=== PATIENT | female | born 1980 | race Hispanic/Latino ===

== ENCOUNTER 2024-04-28 09:11 | Inpatient (IN) | payer MEDICAID ==
--- OUTSIDE RECORDS SUMMARY | 2024-04-28 09:14 | XMS REPORT | Continuity of Care Document ---
Author Name Unknown Address [address] [place] [address] [facility] Address [address] [place] [address] Care Team Providers Care [facility] Supervisor Name Role Phone Ximena Wright Primary Care Physician Allergies, Adverse Reactions, Alerts Allergy Name Allergy Type Status Severity Reaction(s) Onset Date Inactive Date Treating Clinician Comments Source Penicill ins Propensi ty to adverse reaction to drug Active 04-18 00:00: 00 Osmin Simons Phenerga n Propensi ty to adverse reaction to drug Active 2014-02 00:00: 00 Osmin Simons Medications Ordered Medication Name Filled Medication Name Start Date Stop Date Current Medication? Ordering Clinician Indication Dosage Frequency Signature (SIG) Comments Components Source Rodríguez Cruz U-100 Insulin 100 unit/mL (3 mL) subcutaneou s 04-23 00:00: 00 Yes (3 mL) Osmin Simons losartan 25 mg tablet 04-23 00:00: 00 Yes 1mg Osmin Simons ferrous fumarate 324 mg (106 mg iron) tablet 08-08 00:00: 00 Yes 1mg/4 gram Osmin Simons hydrochloro thiazide 12.5 mg tablet 08-02 00:00: 00 Yes 1mg Osmin Simons lisinopril 40 mg tablet 07-05 00:00: 00 Yes 1mg Osmin Simons metformin 500 mg tablet 07-05 00:00: 00 Yes 1mg Osmin Simons diclofenac potassium 50 mg tablet 07-05 00:00: 00 Yes 1mg Osmin Simons levothyroxi ne 50 mcg tablet 07-05 00:00: 00 Yes 1mcg Osmin Simons ibuprofen 800 mg tablet 04-13 00:00: 00 Yes 1mg Osmin Simons Bromfed DM 2 mg-30 mg-10 mg/5 mL syrup 04-13 00:00: 00 Yes 10mg/5 mL Osmin Simons lithium carbonate 300 mg tablet 2014-02 00:00: 00 Yes 3mg Osmin Simons lisinopril 40 mg tablet 2014-02 00:00: 00 Yes 1mg Osmin Simons benztropine 1 mg tablet 2014-02 00:00: 00 Yes 1mg Osmin Simons metformin 500 mg tablet 2014-02 00:00: 00 Yes 1mg Osmin Simons risperidone 2 mg tablet 2014-02 00:00: 00 Yes 1mg Osmin Simons levothyroxi ne 50 mcg tablet 2014-02 00:00: 00 Yes 1mcg Osmin Simons Vital Signs Vital Name Observation Time Observation Value Comments S ource Height Measured 2024-04-27 11:01:00 62.50 inches Osmin Simons Body Temperature 2024-04-27 11:01:00 97.60 degrees Osmin Simons Heart Rate 2024-04-27 11:01:00 92.00 /min Linda en F Ronak Respiratory Rate 2024-04-27 11:01:00 18.00 /min Osmin Simons BP Systolic 2024-04-27 11:01:00 188 mm[Hg] Step hen F Ronak BP Diastolic 2024-04-27 11:01:00 97 mm[Hg] Ender phen F Ronak Weight Measured 2024-04-27 11:01:00 292.40 pounds Osmin Simons BP Systolic 2024-04-23 10:08:00 176 mm[Hg] Step hen F Ronak BP Diastolic 2024-04-23 10:08:00 100 mm[Hg] Ender phen F Ronak Weight Measured 2024-04-23 10:08:00 265.00 pounds Osmin Simons Height Measured 2024-04-23 10:08:00 62.50 inches Osmin Simons Body Temperature 2024-04-23 10:08:00 98.10 degrees Osmin Simons Heart Rate 2024-04-23 10:08:00 101.00 /min Step hen F Ronak Respiratory Rate 2024-04-23 10:08:00 18.00 /min Osmin F Ronak BP Systolic 2015-08-02 11:02:00 135 mm[Hg] Step hen F Ronak BP Diastolic 2015-08-02 11:02:00 89 mm[Hg] Ender phen F Ronak Weight Measured 2015-08-02 11:02:00 265.80 pounds Osmin F Ronak Height Measured 2015-08-02 11:02:00 62.50 inches Osmin F Ronak Body Temperature 2015-08-02 11:02:00 98.10 degrees Osmin F Ronak Heart Rate 2015-08-02 11:02:00 86.00 /min Linda en F Ronak Respiratory Rate 2015-08-02 11:02:00 15.00 /min Osmin F Ronak BP Systolic 2015-07-14 16:52:00 118 mm[Hg] Step hen F Ronak BP Diastolic 2015-07-14 16:52:00 77 mm[Hg] Ender phen F Ronak Weight Measured 2015-07-14 16:52:00 259.00 pounds Osmin F Ronak Height Measured 2015-07-14 16:52:00 Osmin F Ronak Body Temperature 2015-07-14 16:52:00 98.00 degrees Osmin F Ronak Heart Rate 2015-07-14 16:52:00 104.00 /min Step hen F Ronak Respiratory Rate 2015-07-14 16:52:00 18.00 /min Osmin F Ronak BP Systolic 2015-07-06 17:14:00 130 mm[Hg] Step hen F Roank BP Diastolic 2015-07-06 17:14:00 82 mm[Hg] Ender phen F Ronak Weight Measured 2015-07-06 17:14:00 264.40 pounds Osmin F Ronak Height Measured 2015-07-06 17:14:00 62.50 inches Osmin F Ronak Body Temperature 2015-07-06 17:14:00 97.70 degrees Osmin F Ronak Heart Rate 2015-07-06 17:14:00 95.00 /min Linda en F Ronak Respiratory Rate 2015-07-06 17:14:00 15.00 /min Osmin F Ronak BP Systolic 2015-07-06 17:03:00 130 mm[Hg] Step hen F Ronak BP Diastolic 2015-07-06 17:03:00 82 mm[Hg] Ender phen F Ronak Weight Measured 2015-07-06 17:03:00 264.40 pounds Osmin F Ronak Height Measured 2015-07-06 17:03:00 62.50 inches Osmin F Ronak Body Temperature 2015-07-06 17:03:00 97.70 degrees Osmin F Ronak Heart Rate 2015-07-06 17:03:00 95.00 /min Linda en F Ronak Respiratory Rate 2015-07-06 17:03:00 15.00 /min Osmin F Ronak BP Systolic 2015-04-14 13:48:00 166 mm[Hg] Step hen F Ronak BP Diastolic 2015-04-14 13:48:00 100 mm[Hg] Ender phen F Ronak Weight Measured 2015-04-14 13:48:00 253.80 pounds Osmin F Ronak Height Measured 2015-04-14 13:48:00 62.50 inches Osmin F Ronak Body Temperature 2015-04-14 13:48:00 98.10 degrees Osmin F Ronak Heart Rate 2015-04-14 13:48:00 96.00 /min Linda en F Ronak Respiratory Rate 2015-04-14 13:48:00 21.00 /min Osmin F Ronak BP Systolic 2015-04-14 13:42:00 166 mm[Hg] Step hen F Ronak BP Diastolic 2015-04-14 13:42:00 100 mm[Hg] Ender phen F Ronak Weight Measured 2015-04-14 13:42:00 253.80 pounds Osmin F Ronak Height Measured 2015-04-14 13:42:00 62.50 inches Osmin F Ronak Body Temperature 2015-04-14 13:42:00 98.10 degrees Osmin F Ronak Heart Rate 2015-04-14 13:42:00 96.00 /min Linda en F Ronak Respiratory Rate 2015-04-14 13:42:00 21.00 /min Osmin F Ronak BP Systolic 2014-12-08 13:40:00 150 mm[Hg] Step hen F Ronak BP Diastolic 2014-12-08 13:40:00 90 mm[Hg] Ender phen F Ronak Weight Measured 2014-12-08 13:40:00 273.00 pounds Osmin F Ronak Height Measured 2014-12-08 13:40:00 62.50 inches Osmin F Ronak Body Temperature 2014-12-08 13:40:00 97.50 degrees Osmin Simons Heart Rate 2014-12-08 13:40:00 85.00 /min Linda en F Ronak Respiratory Rate 2014-12-08 13:40:00 20.00 /min Osmin Simons BP Diastolic 2014-12-08 13:36:00 90 mm[Hg] Ender Simons Weight Measured 2014-12-08 13:36:00 273.00 pounds Osmin Simons Height Measured 2014-12-08 13:36:00 62.50 inches Osmin Simons Body Temperature 2014-12-08 13:36:00 97.50 degrees Osmin Simons Heart Rate 2014-12-08 13:36:00 85.00 /min Linda en F Ronak Respiratory Rate 2014-12-08 13:36:00 20.00 /min Osmin Simons BP Systolic 2014-12-08 13:36:00 150 mm[Hg] Rayo Simons Encounters Start Date/Time End Date/Time Encounter Type Admission Type Attending [facility] Care Department Encounter ID Source 2024-04-27 10:44:34 2024-04-27 10:44:34 Outpatient [facility] [id number] Osmin Simons 2024-04-23 10:06:36 2024-04-23 10:06:36 Outpatient [facility] [id number] Osmin Simons 2024-04-23 00:00:00 2024-04-23 00:00:00 Outpatient Visit [facility] [id number] Osmin Simons Results Test Description Test Time Test Comments Results Result Co mments Source Osmin SimonsHEMOGLOBIN [id number] 00:00:00* Test Item Value Reference Range Interpretation Comme robby HEMOGLOBIN A1c (test code = 4548-4) 9.8 %oftotalHgb Osmin SimonsVITAMIN B 12 AND FOLIC [id number] 00:00:00* Test Item Value Reference Range Interpretation Comme nts VITAMIN B-12 (test code = 2840) 330 PG/ML FOLIC ACID (test code = 2695) 9.6 NG/ML Osmin [id number] 00:00:00* Test Item Value Reference Range Interpretation Comme nts FERRITIN (test code = 5) 10 NG/ML Osmin SimonsIRON BINDING CAPACITY AND IRON AND % [id number] 00:00:00* Test Item Value Reference Range Interpretation Comme nts IRON, SERUM (test code = 2) 23 UG/DL UNSATURATED IBC (test code = 37123) 404 UG/DL CALC TOTAL IBC (test code = 7) 427 UG/DL CALC % IRON SAT (test code = 2078) 5 % Osmin SimonsRETICULOCYTE [id number] 00:00:00* Test Item Value Reference Range Interpretation Comme nts RETICULOCYTE COUNT (test code = 1018) 1.4 % Osmin SimonsLIPID [id number] 00:00:00* Test Item Value Reference Range Interpretation Comme nts CHOLESTEROL (test code = 2210) 190 MG/DL TRIGLYCERIDES (test code = 2232) 168 MG/DL HDL CHOLESTEROL (test code = 2220) 37 MG/DL CALCULATED LDL CHOL (test co de = 2237) 119 MG/DL RISK RATIO LDL/HDL (test cod e = 2238) 3.23 RATIO Osmin SimonsHEMOGLOBIN [id number] 00:00:00* Test Item Value Reference Range Interpretation Comme nts HEMOGLOBIN A1c (test code = 52385) 6.4 % Osmin SimonsCBC W/AUTO [id number] 00:00:00* Test Item Value Reference Range Interpretation Comme nts WBC (test code = 1001) 8.1 K/UL RBC (test code = 1002) 3.77 M/UL HEMOGLOBIN (test code = 1003) 8.5 G/DL HEMATOCRIT (test code = 1004) 27.4 % MCV (test code = 1005) 72.7 fL MCH (test code = 1006) 22.5 PG MCHC (test code = 1007) 31.0 G/DL RDW (test code = 1038) 15.4 % NEUTROPHILS (test code = 1008) 62 % LYMPHOCYTES (test code = 1010) 27 % MONOCYTES (test code = 1011) 8 % EOSINOPHILS (test code = 1012) 3 % PLATELET COUNT (test code = 1015) 411 K/UL Osmin SimonsTHYROID II PROFILE (T3U, T4, T7, TSH)2015-07-08 00:00:00* Test Item Value Reference Range Interpretation Comme nts T3 UPTAKE (test code = 2817) 29.5 % T4 (THYROXINE) (test code = 2819) 6.2 UG/DL CALCULATED T7 (FTI) (test co de = 2820) 1.83 TSH (test code = 2821) 2.7 UIU/ML Osmin SimonsCOMPREHENSIVE METABOLIC [id number] 00:00:00* Test Item Value Reference Range Interpretation Comme nts GLUCOSE (test code = 2217) 99 MG/DL BUN (test code = 2208) 9 MG/DL CREATININE (test code = 2214) 0.50 MG/DL eGFR AMER. (test cod e = 26940) 146 ML/MIN/1.73 eGFR NON- AMER. (test code = 79368) 126 ML/MIN/1.73 CALCULATED BUN/CREAT (test code = 2235) 18 RATIO SODIUM (test code = 2231) 135 MEQ/L POTASSIUM (test code = 2228) 4.1 MEQ/L CHLORIDE (test code = 2215) 102 MEQ/L CARBON DIOXIDE (test code = 2206) 23 MEQ/L CALCIUM (test code = 2209) 8.9 MG/DL PROTEIN, TOTAL (test code = 2229) 7.0 G/DL ALBUMIN (test code = 2201) 3.7 G/DL CALCULATED GLOBULIN (test code = 2240) 3.3 G/DL CALCULATED A/G RATIO (test code = 2234) 1.1 RATIO BILIRUBIN, TOTAL (test code = 2207) 0.6 MG/DL ALKALINE PHOSPHATASE (test code = 2204) 73 U/L SGOT (AST) (test code = 2218) 10 U/L SGPT (ALT) (test code = 2219) 10 U/L Osmin Simons Notes Date/Time Note Provider Source Osmin Simons [facility]
--- NOTE | 2024-04-28 09:35 | RAD REPORT ---
Procedure: Chest Single View HISTORY: Chest pain COMPARISON: 2016 FINDINGS: The rachel are hazy. No significant pleural effusion noted. The heart is mildly to moderately enlarged. IMPRESSION: These findings may indicate mild CHF
[2024-04-28] MEDS ORDERED: LABETALOL 20 MG/4ML SYRINGE IV ONE (09:39)
[2024-04-28 09:48] LABS: Absolute Eosinophils 0.1 K/uL (0-0.5); Absolute Lymphocytes (CBC) 1.3 K/uL (0.7-4.9); Absolute Monocytes 0.6 K/uL (0.1-1.3); Absolute Neutrophil 5.7 K/uL (1.8-8.0); Basophils % 0.4 % (0-1.3); Eosinophils % 1.4 % (0-4.4); Hematocrit 32.4 % (36.0-45.0); Hemoglobin 10.4 g/dL (12.0-15.0); Lymphocytes % 17.1 % (15.3-44.8); MCH 23.9 pg (27.0-35.0); MCHC 32.2 g/dL (32.0-36.0); MCV 74.3 fL (80-100); MPV 8.4 fL (7.6-11.3); Monocytes % 8.1 % (3.3-12.3); Nucleated Red Blood Cells % 0.2 % (0-0); PT Prothrombin Time 12.1 SECONDS (10-13.0); Platelets 321 thou/uL (152-406); Protime INR 1.06; RBC Red Blood Cell Count 4.35 M/uL (3.86-4.86); Red Cell Distribution Width 16.6 % (12.1-15.2)
[2024-04-28 10:04] LABS: Albumin 3.3 g/dL (3.4-5.0); Albumin/Globulin Ratio 0.9 (1.1-1.8); Anion Gap 10.8 mEq/L (5.0-15.0); Bilirubin Direct 0.2 mg/dL (0-0.2); Bilirubin Indirect, Calculated 0.6 mg/dL (0.2-0.8); Bilirubin Total 0.8 mg/dL (0.2-1.0); Globulin 3.8 g/dL (2.3-3.5); Magnesium 1.8 mg/dL (1.6-2.4); Potassium 3.8 mEq/L (3.5-5.1); Protein, Total 7.1 g/dL (6.4-8.2); Troponin High Sensitivity 22.7 pg/mL (<58.9)
--- NOTE | 2024-04-28 10:50 | EDPHYS ---
Physician Documentation [facility] Name: Sally Mclaughlin Age: 43 yrs Sex: Female : 1980 Arrival Date: 04/28/2024 Time: 09:11 Bed 7 Private MD: ED Physician Kentrell Newman HPI: 04/28 11:56 This 43 yrs old Female presents to ER via EMS with complaints of Chest Pain. ms3 11:56 43-year-old female with past medical history of acid reflux, bipolar disorder, anemia, ms3 diabetes, heart murmur, hypertension presents to the emergency department for chest pain that began 2 days prior to arrival. Patient states laying down makes the pain better. [place] notes twelve-lead normal, 324 mg aspirin was given. She denies any alleviating or inciting factors.. Historical: - Allergies: 09:13 Haldol; ld1 09:13 PENICILLINS; ld1 09:13 Phenergan; ld1 09:13 Trazodone; ld1 09:13 Geodon; ld1 - PMHx: 09:13 acid reflux; Bipolar disorder; chronic anemia; Diabetes - NIDDM; Heart Murmur; ld1 Hypertension; Hypothyroidism; Schizophrenia; - Immunization history:: Adult Immunizations up to date. - Infectious Disease History:: Denies. - Social history:: Smoking status: Patient denies any tobacco usage or history of. ROS: 11:56 Constitutional: Negative for fever, and chills. ms3 11:56 Abdomen/GI: Negative for abdominal pain, nausea, vomiting, diarrhea, and constipation, MS/Extremity: Negative for injury and deformity, Skin: Negative for injury, rash, and discoloration, 11:56 Cardiovascular: Positive for chest pain, 11:56 Respiratory: Positive for shortness of breath, Exam: 11:56 Constitutional: This is a well developed, well nourished patient who is awake, alert, ms3 and in no acute distress. Cardiovascular: Regular rate and rhythm with a normal S1 and S2. No gallops, murmurs, or rubs. Normal PMI, no JVD. No pulse deficits. Respiratory: Lungs have equal breath sounds bilaterally, clear to auscultation and percussion. No rales, rhonchi or wheezes noted. No increased work of breathing, no retractions or nasal flaring. Abdomen/GI: Soft, non-tender, with normal bowel sounds. No distension or tympany. No guarding or rebound. No evidence of tenderness throughout. Skin: Warm, dry with normal turgor. Normal color with no rashes, no lesions, and no evidence of cellulitis. MS/ Extremity: Pulses equal, no cyanosis. Neurovascular intact. Full, normal range of motion. 11:58 ECG was reviewed by the Attending Physician. ms3 Vital Signs: 09:12 BP 184 / 105; Pulse 111; Resp 18; Temp 98.1(TE); Pulse Ox 95% on R/A; Weight 130.63 kg; ld1 Height 5 ft. 6 in. ; Pain 7/10; 09:32 BP 183 / 95; Pulse 95; Resp 18; Pulse Ox 96% on R/A; Pain 7/10; iw 09:48 BP 190 / 95; Pulse 90; Resp 18; Pulse Ox 95% on R/A; ld1 10:11 BP 206 / 94; Pulse 86; Resp 16; Pulse Ox 91% on R/A; ld1 10:25 BP 199 / 110; Pulse 95; Resp 19; Pulse Ox 98% on R/A; ld1 19:18 BP 195 / 95; Pulse 85; Resp 18; Pulse Ox 97% on R/A; al5 09:12 Body Mass Index 46.48 (130.63 kg, 167.64 cm) ld1 09:12 Pain Scale: Adult ld1 09:32 Pain Scale: Adult iw MDM: 09:13 Medical Screening Exam initiated ms3 11:56 Differential diagnosis: abnormal EKG, acute myocardial infarction, congestive heart ms3 failure. HEART Score: History: Slightly Suspicious (0), ECG: Normal (0), Age: < or = 45 years (0), Risk Factors: > or = 3 Risk factors for atherosclerotic disease (2), [Hypertension] [DM] [Obesity] Troponin: < or = 1 x Normal Limit (0), Total Score = 2. Data reviewed: vital signs, nurses notes. 11:58 The patient was not given aspirin in the Emergency Department. Administered by EMS. ms3 Consideration of Admission/Observation Patient was admitted/placed on observation. Management of patient was discussed with the following: Hospitalist: Hospitalist. I considered the following discharge prescriptions or medication management in the emergency department Medications were administered in the Emergency Department. See MAR. Independent interpretation of the following test(s) in the Emergency Department EKG: See my EKG interpretation above. Counseling: I had a detailed discussion with the patient and/or guardian regarding the historical points, exam findings, and any diagnostic results supporting the discharge/admit diagnosis, lab results, radiology results, the need for further work-up and treatment in the hospital. ED course: Discussed necessity for admission with patient. Patient complaining of shortness of breath with mild pulmonary edema on chest x-ray. Patient given 20 mg IV Lasix in the emergency department. Patient understands and agrees with plan for observation. Case was discussed with hospitalist and they accept patient.. 04/28 09:14 Order name: Basic Metabolic Panel; Complete Time: 10:41 ms3 04/28 09:14 Order name: CBC with Diff; Complete Time: 10:41 ms3 04/28 09:14 Order name: LFT's; Complete Time: 10:41 ms3 04/28 09:14 Order name: Magnesium; Complete Time: 10:41 ms3 04/28 09:14 Order name: NT PRO-BNP; Complete Time: 10:41 ms3 04/28 09:14 Order name: PT-INR; Complete Time: 10:41 ms3 04/28 09:14 Order name: Troponin HS; Complete Time: 10:41 ms3 04/28 12:58 Order name: Magnesium EDMS 04/28 12:58 Order name: Phosphorus EDMS 04/28 12:59 Order name: T4 Free EDMS 04/28 12:59 Order name: Thyroid Stimulating Hormone EDMS 04/28 12:59 Order name: Urinalysis w/ reflexes EDMS 04/28 12:59 Order name: Basic Metabolic Panel EDMS 04/28 12:59 Order name: Basic Metabolic Panel EDMS 04/28 12:59 Order name: CBC with Automated Diff EDMS 04/28 12:59 Order name: CBC with Automated Diff EDMS 04/28 12:59 Order name: NT PRO-BNP EDMS 04/28 12:59 Order name: NT PRO-BNP EDMS 04/28 09:14 Order name: XRAY Chest (1 view); Complete Time: 09:43 ms3 04/28 09:14 Order name: Cardiac monitoring; Complete Time: 09:35 ms3 04/28 09:14 Order name: EKG - Nurse/Tech; Complete Time: 09:35 ms3 04/28 09:14 Order name: IV Saline Lock; Complete Time: :34 ms3 04/28 09:14 Order name: Labs collected and sent; Complete Time: 34 ms3 04/28 09:14 Order name: O2 Per Protocol; Complete Time: 34 ms3 04/28 09:14 Order name: O2 Sat Monitoring; Complete Time: ms3 EC:58 Rate is 99 beats/min. Rhythm is regular. QRS [place] is Normal. WI interval is normal. QRS ms3 interval is normal. Clinical impression: NSR w/ Non-specific ST/T Changes. Interpreted by me. Reviewed by me. Administered Medications: 09:48 Drug: Labetalol IV 10 mg IV at calculated rate once Route: IV; Rate: calculated rate; ld1 Site: right antecubital; 19:18 Follow up: Response: No adverse reaction; IV Status: Completed infusion al5 11:00 Drug: Furosemide IVP 20 mg IVP once; give over 2 minutes Route: IVP; Site: left ld1 antecubital; 19:18 Follow up: Response: No adverse reaction al5 Disposition Summary: 04/28/24 10:49 Hospitalization Ordered Notes: Hospitalization Status: Observation ms3 Provider: Jim Vann ms3 Condition: Stable ms3 Problem: new ms3 Symptoms: are unchanged ms3 Bed/Room Type: Standard ms3 Location: Telemetry/MedSurg (observation)(04/28/24 18:59) Room Assignment: [facility](04/28/24 18:59) Diagnosis - Heart failure, unspecified ms3 - Essential (primary) hypertension ms3 Forms: - Medication Reconciliation Form ms3 - SBAR form ms3 - Leadership Thank You Letter ms3 Signatures: Dispatcher [employer] EDMS Ila Copeland Heather RN RN Kentrell Newman DO DO ms3 Yolette Newman RN RN ld1 Cate Mann RN al5 Corrections: (The following items were deleted from the chart) 09:15 09:15 BASIC METABOLIC PANEL+C.LAB.BRZ ordered. EDMS EDMS 09:15 09:15 CBC+H.LAB.BRZ ordered. EDMS EDMS 09:15 09:15 HEPATIC FUNCTION+C.LAB.BRZ ordered. EDMS EDMS 09:15 09:15 MAGNESIUM+C.LAB.BRZ ordered. EDMS EDMS 09:15 09:15 PROBNP+C.LAB.BRZ ordered. EDMS EDMS 09:15 09:15 PROTIME (+INR)+COAG.LAB.BRZ ordered. EDMS EDMS 09:15 09:15 Troponin High Sensitivity+C.LAB.BRZ ordered. EDMS EDMS 09:15 09:15 Chest Single View+RAD.RAD.BRZ ordered. EDMS EDMS 11:59 11:56 The patient was given aspirin in the Emergency Department. ms3 ms3 14:39 10:49 Telemetry/MedSurg (observation) ms3 bd 14:39 10:49 ms3 bd 18:59 14:39 [facility] ER HOLD bd hb 18:59 14:39 ERHOLD- bd hb
--- NOTE | 2024-04-28 10:50 | ER ---
Nurse's Notes [facility] Name: Sally Mclaughlin Age: 43 yrs Sex: Female : 1980 Arrival Date: 04/28/2024 Time: 09:11 Bed 7 Private MD: Diagnosis: Heart failure, unspecified;Essential (primary) hypertension Presentation: 04/28 09:12 Chief complaint: EMS states: [facility]. Coronavirus ld1 screen: At this time, the client does not indicate any symptoms associated with coronavirus-19. Ebola Screen: No symptoms or risks identified at this time. Initial Sepsis Screen: Does the patient meet any 2 criteria? No. Patient's initial sepsis screen is negative. Does the patient have a suspected source of infection? No. Patient's initial sepsis screen is negative. Risk Assessment: Do you want to hurt yourself or someone else? Patient reports no desire to harm self or others. Onset of symptoms was April 28, 2024. 09:12 Method Of Arrival: EMS: [facility] ld1 09:12 Acuity: CAL 3 ld1 Triage Assessment: 09:13 General: Appears in no apparent distress. comfortable, Behavior is calm, cooperative, ld1 appropriate for age. Pain: Complains of pain in chest Pain does not radiate. Pain currently is 7 out of 10 on a pain scale. Quality of pain is described as throbbing, Pain began suddenly, Is continuous. EENT: No signs and/or symptoms were reported regarding the EENT system. Neuro: Level of Consciousness is awake, alert, obeys commands, Oriented to person, place, time, situation, Appropriate for age. Cardiovascular: Capillary refill < 3 seconds Patient's skin is warm and dry. Rhythm is sinus tachycardia. Respiratory: Airway is patent Respiratory effort is even, unlabored. GI: Abdomen is round non-distended, obese. : No signs and/or symptoms were reported regarding the genitourinary system. Derm: No signs and/or symptoms reported regarding the dermatologic system. Musculoskeletal: No signs and/or symptoms reported regarding the musculoskeletal system. Historical: - Allergies: 09:13 Haldol; ld1 09:13 PENICILLINS; ld1 09:13 Phenergan; ld1 09:13 Trazodone; ld1 09:13 Geodon; ld1 - PMHx: 09:13 acid reflux; Bipolar disorder; chronic anemia; Diabetes - NIDDM; Heart Murmur; ld1 Hypertension; Hypothyroidism; Schizophrenia; - Immunization history:: Adult Immunizations up to date. - Infectious Disease History:: Denies. - Social history:: Smoking status: Patient denies any tobacco usage or history of. Screenin:16 [facility] ED Fall Risk Assessment (Adult) History of falling in the last 3 months, ld1 including since admission No falls in past 3 months (0 pts) Confusion or Disorientation No (0 pts) Intoxicated or Sedated No (0 pts) Impaired Gait No (0 pts) Mobility Assist Device Used No (0 pt) Altered Elimination No (0 pt) Score/Fall Risk Level 0 - 2 = Low Risk Oriented to surroundings, Hourly rounding (assess needs \T\ fall precautionary measures) done. Abuse screen: Denies threats or abuse. Denies injuries from another. Nutritional screening: No deficits noted. Tuberculosis screening: No symptoms or risk factors identified. Assessment: 09:16 Reassessment: See triage assessment. Pain: Complains of pain in chest. ld1 09:33 General: Appears in no apparent distress. comfortable, Behavior is drowsy. Pain: iw Complains of pain in chest Pain currently is 7 out of 10 on a pain scale. Pain began 2-3 days ago. 09:49 Reassessment: Patient appears in no apparent distress at this time. No changes from ld1 previously documented assessment. Patient and/or family updated on plan of care and expected duration. Pain level reassessed. Patient denies pain at this time. Vital Signs: 09:12 BP 184 / 105; Pulse 111; Resp 18; Temp 98.1(TE); Pulse Ox 95% on R/A; Weight 130.63 kg; ld1 Height 5 ft. 6 in. ; Pain 7/10; 09:32 BP 183 / 95; Pulse 95; Resp 18; Pulse Ox 96% on R/A; Pain 7/10; iw 09:48 BP 190 / 95; Pulse 90; Resp 18; Pulse Ox 95% on R/A; ld1 10:11 BP 206 / 94; Pulse 86; Resp 16; Pulse Ox 91% on R/A; ld1 10:25 BP 199 / 110; Pulse 95; Resp 19; Pulse Ox 98% on R/A; ld1 19:18 BP 195 / 95; Pulse 85; Resp 18; Pulse Ox 97% on R/A; al5 09:12 Body Mass Index 46.48 (130.63 kg, 167.64 cm) ld1 09:12 Pain Scale: Adult ld1 09:32 Pain Scale: Adult iw ED Course: 09:12 Patient arrived in ED. ld1 09:13 Triage completed. ld1 09:13 Kentrell Newman DO is Attending Physician. ms3 09:13 Arm band placed on right wrist. ld1 09:16 Patient has correct armband on for positive identification. Placed in gown. Bed in low ld1 position. Call light in reach. Side rails up X2. monitoring tech on. Pulse ox on. NIBP on. Door closed. Noise minimized. Warm blanket given. 09:16 No provider procedures requiring assistance completed. Patient maintains SpO2 ld1 saturation greater than 95% on room air. 09:30 XRAY Chest (1 view) In Process Unspecified. EDMS 09:32 Initial lab(s) drawn, by me, sent to lab. Inserted saline lock: 20 gauge in right iw antecubital area, using aseptic technique. Blood collected. Flushed with 10 mL NS. 09:48 Yolette Newman, RN is Primary Nurse. ld1 10:48 Jim Vann is Hospitalizing Provider. ms3 16:00 Patient admitted, IV remains in place. ld1 19:17 Provided Education on: room assignment. al5 Administered Medications: 09:48 Drug: Labetalol IV 10 mg IV at calculated rate once Route: IV; Rate: calculated rate; ld1 Site: right antecubital; 19:18 Follow up: Response: No adverse reaction; IV Status: Completed infusion al5 11:00 Drug: Furosemide IVP 20 mg IVP once; give over 2 minutes Route: IVP; Site: left ld1 antecubital; 19:18 Follow up: Response: No adverse reaction al5 Medication: 09:32 VIS not applicable for this client. iw Outcome: 10:49 Decision to Hospitalize by Provider. ms3 16:00 Admitted to ER Hold. Please see [facility] for further documentation. ld1 16:00 Condition: stable 16:00 Instructed on the need for admit, 20:39 Patient left the ED. al5 Signatures: Dispatcher [employer] Armida Gregg, RN RN iw Kentrell Newman, DO DO ms3 Yolette Newman, GLENNA RN ld1 Cate Mann, RN RN al5
[2024-04-28] MEDS ORDERED: FUROSEMIDE 20 MG/ 2ML VIAL ONE (10:58)
[2024-04-28] MEDS ORDERED: ACETAMINOPHEN 325 MG TABLET PO PRN (12:52)
[2024-04-28] MEDS ORDERED: HYDROCODONE/APAP 5/325 MG TAB PO PRN (12:52)
[2024-04-28] MEDS ORDERED: ONDANSETRON 4 MG/2 ML VIAL IV PRN (12:56)
--- NOTE | 2024-04-28 13:02 | P.HP ---
Certification for Inpatient Patient admitted to: Inpatient With expected LOS: >2 Midnights Patient will require the following post-hospital care: None Practitioner: I am a practitioner with admitting privileges, knowledge of patient current condition, hospital course, and medical plan of care. Services: Services provided to patient in accordance with Admission requirements found in Title 42 Section 412.3 of the Code of Federal Regulations Patient History Date of Service: 04/28/24 Reason for admission: Chest pain History of Present Illness: Patient is a 43-year-old with a past medical history significant for GERD, bipolar disorder, anemia, DM2, hypertension, hypothyroidism, schizophrenia who presents with complaint of chest pain located in the left chest wall that has been ongoing for the past 4 days. Patient rated pain as 6/10 in severity and described pain as pressure in quality. Patient reported associated signs and symptoms of shortness of breath, fatigue, weakness, diaphoresis and bilateral lower extremity edema. Patient denies any other signs and symptoms. Symptoms are aggravated or relieved by nothing. Patient decided to present to the hospital due to worsening symptoms. Allergies divalproex sodium [From Depakote] Allergy (Unverified 01/12/15 17:50) Unknown haloperidol [From Haldol] Allergy (Unverified 01/12/15 17:50) Unknown haloperidol lactate [From Haldol] Allergy (Unverified 01/12/15 17:50) Unknown promethazine HCl [From Phenergan] Allergy (Unverified 01/12/15 17:50) Unknown Penicillins Allergy (Uncoded 07/02/15 02:06) Unknown - Past Medical/Surgical History -: GERD -: Bipolar disorder -: Anemia -: DM2 -: Hypertension -: Hypothyroidism -: schizophrenia Past Surgical History: Patient denies surgical history - Family History Family History: Reviewed- Non-Contributory - Social History Smoking Status: Never smoker Smoking therapy provided: No Alcohol use: No Caffeine use: No Place of Residence: Home Review of Systems General: Weakness, Other (fatigue,diaphoresis ) Eyes: Unremarkable ENT: Unremarkable Respiratory: Shortness of Breath Cardiovascular: Edema Genitourinary: Unremarkable Musculoskeletal: Pedal edema Integumentary: Unremarkable Neurological: Weakness Lymphatics: Unremarkable Physical Examination - Physical Exam General: Alert, In no apparent distress, Oriented x3, Cooperative HEENT: Atraumatic, PERRLA, Mucous membr. moist/pink, EOMI, Sclerae nonicteric Neck: Supple, 2+ carotid pulse no bruit, No LAD, Without JVD or thyroid abnormality Respiratory: Clear to auscultation bilaterally, Normal air movement Cardiovascular: Regular rate/rhythm, Normal S1 S2, Edema Capillary refill: <2 Seconds Gastrointestinal: Normal bowel sounds, Non-distended, No tenderness Musculoskeletal: No clubbing, No tenderness Integumentary: No rashes, Tenderness/swelling Neurological: Normal gait, Normal speech, Normal tone, Normal affect Lymphatics: No axilla or inguinal lymphadenopathy - Studies Laboratory Data (last 24 hrs) 04/28/24 04/28/24 04/28/24 09:30 09:30 09:30 WBC 7.90 Hgb 10.4 L Hct 32.4 L Plt Count 321 PT 12.1 INR 1.06 Sodium 136 Potassium 3.8 BUN 7 Creatinine 0.63 Glucose 244 H Magnesium 1.8 Total Bilirubin 0.8 AST 34 ALT 39 Alkaline Phosphatase 82 Assessment and Plan - Plan Chest pain. --To rule out ACS --Echocardiogram pending to assess cardiac structures and function. --Cardiology consulted. Recommendations appreciated. --Telemetry to monitor for any significant arrhythmia. Suspected systolic or diastolic CHF --Echocardiogram pending to assess LV\valvular function and wall motion. --Weaver Hand on board. --Continue diuresis with Lasix. --Daily weight and strict I/O GERD\Bipolar disorder\Hypothyroidism\Schizophrenia --Continue home medications. Anemia of chronic disease --H&H stable. --Transfuse if hemoglobin less than 7.0 Hypertension --Poorly controlled --Continue home medications --Labetalol as needed for SBP greater than 160 mmHg. DM2 --BS monitoring with sliding scale insulin DVT prophylaxis with Lovenox subQ Discharge Plan: Home Plan to discharge in: Greater than 2 days - Advance Directives Does patient have a Living Will: No Does patient have a Durable POA for Healthcare: No - Code Status/Comfort Care Code Status Assessed: Yes Physician Review: Patient Assessed, Agree with Above Assessment and Plan Critical Care: No
[2024-04-28] MEDS: FUROSEMIDE 40 MG/4 ML VIAL IV SCH (17:00)
[2024-04-28] MEDS ORDERED: FUROSEMIDE 40 MG/4 ML VIAL ONE (18:00)
[2024-04-28] MEDS ORDERED: D10W 125 ML IV PRN (23:37)
[2024-04-28] MEDS ORDERED: GLUCAGON 1 MG/VIAL IM PRN (23:37)
[2024-04-29 05:35] LABS: Absolute Basophils 0.1 K/uL (0-0.5); Absolute Eosinophils 0.1 K/uL (0-0.5); Absolute Lymphocytes (CBC) 1.5 K/uL (0.7-4.9); Absolute Monocytes 0.7 K/uL (0.1-1.3); Absolute Neutrophil 5.8 K/uL (1.8-8.0); Basophils % 0.9 % (0-1.3); Eosinophils % 1.5 % (0-4.4); Hematocrit 33.1 % (36.0-45.0); Hemoglobin 10.8 g/dL (12.0-15.0); Lymphocytes % 18.8 % (15.3-44.8); MCH 24.3 pg (27.0-35.0); MCHC 32.6 g/dL (32.0-36.0); MCV 74.4 fL (80-100); MPV 8.2 fL (7.6-11.3); Monocytes % 8.5 % (3.3-12.3); Neutrophils % 70.3 % (41.7-73.7); Platelets 337 thou/uL (152-406); RBC Red Blood Cell Count 4.45 M/uL (3.86-4.86); Red Cell Distribution Width 16.7 % (12.1-15.2)
[2024-04-29] MEDS: LABETALOL 20 MG/4ML SYRINGE IV PRN (06:15)
[2024-04-29] MEDS: INSULIN REGULAR (HUMAN) 100 UNIT/ML SQ SCH (07:30)
[2024-04-29] MEDS: ENOXAPARIN 40 MG/0.4 ML SQ SCH (08:50)
[2024-04-29 11:20] LABS: Phosphorus 4.8 mg/dL (2.5-4.9); Thyroid Stimulating Hormone 1.47 uIU/mL (0.358-3.740)
--- NOTE | 2024-04-29 11:35 | P.CNS ---
Date of Consult: 04/29/24 Chief Complaint: Chest pain History of Present Illness: Patient with PMH of HTN, some congenital heart disease per patient, presented with worsening SOB for the last week, assoicated with chest pain, pressure left sided, radiating to her arm that can last 20 minutes, also report lower extremities swelling. no palpitations, no syncope. Allergies divalproex sodium [From Depakote] Allergy (Unverified 01/12/15 17:50) Unknown haloperidol [From Haldol] Allergy (Unverified 01/12/15 17:50) Unknown haloperidol lactate [From Haldol] Allergy (Unverified 01/12/15 17:50) Unknown promethazine HCl [From Phenergan] Allergy (Unverified 01/12/15 17:50) Unknown Penicillins Allergy (Uncoded 07/02/15 02:06) Unknown Home medications list reviewed: Yes - Past Medical/Surgical History -: GERD -: Bipolar disorder -: Anemia -: DM2 -: Hypertension -: Hypothyroidism -: schizophrenia - Social History Smoking Status: Never smoker Alcohol use: No Caffeine use: No Place of Residence: Home Review of Systems 10-point ROS is otherwise unremarkable Physical Examination Temp Pulse Resp BP Pulse Ox 98.1 F 92 H 14 161/77 H 92 04/29/24 08:00 04/29/24 08:49 04/29/24 08:00 04/29/24 08:49 04/29/24 08:00 General: Alert, In no apparent distress HEENT: Atraumatic, PERRLA, Mucous membr. moist/pink, EOMI, Sclerae nonicteric Neck: Supple, 2+ carotid pulse no bruit, No LAD, Without JVD or thyroid a bnormality Respiratory: Clear to auscultation bilaterally, Normal air movement Cardiovascular: Regular rate/rhythm, Normal S1 S2 Gastrointestinal: Normal bowel sounds, No tenderness Musculoskeletal: No tenderness Integumentary: No rashes Neurological: Normal gait, Normal speech, Normal tone, Normal affect Lymphatics: No axilla or inguinal lymphadenopathy - Problems (1) SOB (shortness of breath) Current Visit: Yes Status: Acute Plan: continue Lasix 40 mg IV BID Start Coreg 6.25 mg po BID start Lisinopril 5 mg daily Start Aldactone 25 mg daily get echo monitor input and output and electrolytes.
--- NOTE | 2024-04-29 12:32 | EKG ---
Test Date: 2024-04-28 Test Time: 09:33:34 Housing Assistant Property Manager: HENRY MEASUREMENT RESULTS: Intervals: Rate: 99 VA: 174 QRSD: 88 QT: 374 QTc: 479 Gould: P: 70 VA: 174 QRS: 73 T: 44 INTERPRETIVE STATEMENTS: Sinus rhythm with premature supraventricular complexes Otherwise normal ECG Compared to ECG 08/02/2015 15:45:29 Atrial premature complex(es) now present Electronically Signed On 04-29-24 12:26:12 CDT by Anthony Meza
--- NOTE | 2024-04-29 13:15 | ECHO ---
HEIGHT: 5 ft 6 in WEIGHT: 288 lb 12.889 oz DATE OF STUDY: 04/29/[address]: Artur Taylor 2-DIMENSIONAL: YES M.MODE: YES DOPPLER: YES COLOR FLOW: YES TDS: PORTABLE: YES DEFINITY: BUBBLE STUDY: DIAGNOSIS: CONGESTIVE HEART FAILURE CARDIAC HISTORY: CATHERIZATION: YES SURGERY: NO PROSTHETIC VALVE: NO PACEMAKER: NO MEASUREMENTS (cm) DIASTOLIC (NORMALS) SYSTOLIC (NORMALS) IVSd 1.5 (0.6-1.2) LA Diam 3.4 (1.9-4.0) LVEF 60-65% LVIDd 4.6 (3.5-5.7) LVIDs 3.2 (2.0-3.5) %FS 30% LVPWd 1.5 (0.6-1.2) Ao Diam 3.2 (2.0-3.7) 2 DIMENSIONAL ASSESSMENT: RIGHT ATRIUM: NORMAL LEFT ATRIUM: NORMAL RIGHT VENTRICLE: NORMAL LEFT VENTRICLE: MODERATE LEFT VENTRICULAR HYPERTROPHY TRICUSPID VALVE: MODERATE TRICUSPID REGURGITATION MITRAL VALVE: TRACE MITRAL REGURGITATION PULMONIC VALVE: NORMAL AORTIC VALVE: MILD AORTIC REGURGITATION PERICARDIAL EFFUSION: NONE AORTIC ROOT: NORMAL LEFT VENTRICULAR WALL MOTION: NORMAL DOPPLER/COLOR FLOW: NORMAL COMMENTS: 1. NORMAL LEFT VENTRICULAR SYSTOLIC FUNCTION, EJECTION FRACTION 60-65%, NORMAL WALL MOTION 2. NORMAL DIASTOLIC FUNCTION 3. AORTIC VALVE MOST LIKELY BICUSPID WITH MILD AORTIC REGURGITATION 4. MODERATE TRICUSPID REGURGITATION 5. MILDLY ELEVATED FILLING PRESSURE (RIGHT ATRIAL PRESSURE 10-15 mmHg) 6. SEVERE PULMONARY HYPERTENSION (RIGHT VENTRICULAR SYSTOLIC PRESSURE GREATER THAN 60 mmHg) TECHNOLOGIST: SAVITA BLACKBURN
[2024-04-30 06:20] LABS: Absolute Basophils 0.1 K/uL (0-0.5); Absolute Eosinophils 0.1 K/uL (0-0.5); Absolute Lymphocytes (CBC) 1.8 K/uL (0.7-4.9); Absolute Monocytes 0.7 K/uL (0.1-1.3); Basophils % 1.1 % (0-1.3); Eosinophils % 1.7 % (0-4.4); Hematocrit 34.1 % (36.0-45.0); Lymphocytes % 20.5 % (15.3-44.8); MCH 23.8 pg (27.0-35.0); MCHC 32.2 g/dL (32.0-36.0); MCV 73.9 fL (80-100); MPV 8.4 fL (7.6-11.3); Monocytes % 8.2 % (3.3-12.3); Neutrophils % 68.5 % (41.7-73.7); Nucleated Red Blood Cells % 0.1 % (0-0); Platelets 351 thou/uL (152-406); RBC Red Blood Cell Count 4.61 M/uL (3.86-4.86); Red Cell Distribution Width 16.9 % (12.1-15.2)
[2024-04-30 06:44] LABS: Albumin 3.2 g/dL (3.4-5.0); Albumin/Globulin Ratio 0.8 (1.1-1.8); Anion Gap 8.7 mEq/L (5.0-15.0); Globulin 4.2 g/dL (2.3-3.5); Potassium 3.7 mEq/L (3.5-5.1); Protein, Total 7.4 g/dL (6.4-8.2); Troponin High Sensitivity 18.8 pg/mL (<58.9)
[2024-04-30 06:55] LABS: Specific Gravity 1.019 (1.005-1.030); Sqamous Epithelial <5 /HPF (None Seen); Urine Bacteria None Seen /HPF (<20); Urine Bilirubin NEGATIVE (Negative); Urine Blood 1+ (Negative); Urine Clarity Turbid (Clear); Urine Color Light-Yellow (Yellow); Urine Culture Reflex Order NOT NEEDED; Urine Glucose NEGATIVE (Negative); Urine Ketones NEGATIVE (Negative); Urine Microscopic Reflex YN ORDER UMIC; Urine Mucus Slight /HPF (None Seen); Urine Nitrite NEGATIVE (Negative); Urine Protein TRACE (Negative); Urine RBC <5 /HPF (None Seen); Urine Urobilinogen Normal (Normal); Urine WBC <5 /HPF (<5)
[2024-04-30] MEDS: POTASSIUM CL SA 10 MEQ TAB PO ONE (08:07)
--- NOTE | 2024-04-30 10:56 | P.PN ---
Subjective Date of Service: 04/30/24 Chief Complaint: Chest pain Subjective: No new changes, No C/O voiced, Tolerating diet, Ambulating, Improving Review of Systems 10-point ROS is otherwise unremarkable Physical Examination - Vital Signs Temperature: 98.9 F Blood Pressure: 140/66 Pulse: 80 Respirations: 16 Pulse Ox (%): 93 - Physical Exam General: Alert, In no apparent distress HEENT: Atraumatic, PERRLA, EOMI Neck: Supple, JVD not distended Respiratory: Clear to auscultation bilaterally, Normal air movement Cardiovascular: Regular rate/rhythm, Normal S1 S2 Gastrointestinal: Normal bowel sounds, No tenderness Musculoskeletal: No tenderness Integumentary: No rashes Neurological: Normal speech, Normal tone, Normal affect Lymphatics: No axilla or inguinal lymphadenopathy - Studies Medications List Reviewed: Yes Assessment And Plan - Current Problems (Diagnosis) (1) SOB (shortness of breath) Current Visit: Yes Status: Acute Plan: continue Lasix 40 mg IV BID Start Coreg 6.25 mg po BID start Lisinopril 5 mg daily Start Aldactone 25 mg daily Echo shows Normal LV function, severe pulomary hypertension monitor input and output and electrolytes. (2) Pulmonary hypertension Current Visit: Yes Status: Acute Plan: as above, recommend getting pulmonary consult (3) Chest pain Current Visit: Yes Status: Acute Plan: cardiac enzymes are negative, echo normal EF outpatient follow up with cardiology for stress test Physician Review: Patient Assessed, Agree with Above Assessment and Plan
[2024-04-30] MEDS: carvediloL 6.25 MG TAB PO SCH (15:41)
[2024-04-30] MEDS: lisinopriL 5 MG TAB PO SCH (15:41)
[2024-04-30] MEDS: SPIRONOLACTONE 25 MG TABLET PO SCH (15:41)
[2024-05-01 05:11] LABS: Anion Gap 7.8 mEq/L (5.0-15.0); Potassium 3.8 mEq/L (3.5-5.1)
[2024-05-01] MEDS: POTASSIUM CL SA 10 MEQ TAB PO ONE (09:42)
[2024-05-01 13:06] VITALS: BP 123/65; TEMP 98.7
[2024-05-01 17:04] VITALS: O2SAT 95
[2024-05-01 17:05] VITALS: BMI 28.8
== END 2024-05-01 16:30 | disposition home or self-care (01) | DRG 313 ==
LOC: ER 09:11 → ERHOLD 12:49 → 2ND 19:56
PROVIDERS: ADMIT Hospitalist; ATTEND Hospitalist
DX: R07.9 Chest pain, unspecified (principal); E03.9 Hypothyroidism, unspecified; I10 Essential (primary) hypertension; F20.9 Schizophrenia, unspecified; F31.9 Bipolar disorder, unspecified; E11.9 Type 2 diabetes mellitus without complications; I27.20 Pulmonary hypertension, unspecified; K21.9 Gastro-esophageal reflux disease without esophagitis; D63.8 Anemia in other chronic diseases classified elsewhere; Z88.0 Allergy status to penicillin; Z88.5 Allergy status to narcotic agent; Z88.8 Allergy status to other drugs, medicaments and biological substances
CPT/HCPCS: 36415; 71045; 80048; 80053; 80076; 81001; 82947; 83735; 83880; 84100; 84145; 84439; 84443; 84484; 85025; 85379; 85610; 93005; 93306; 96365; 96366; 96375; 99285; J1650; J1815; J1940

== ENCOUNTER 2024-05-02 08:22 | Emergency (ER) | payer MEDICAID ==
--- OUTSIDE RECORDS SUMMARY | 2024-05-02 08:27 | XMS REPORT | Continuity of Care Document ---
Author Name Unknown Address [address] [place] [address] [address] [place] [address] [facility] Address [address] 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 Name Role Phone Ximena Wright Primary Care Physician [phone] Allergies, Adverse Reactions, Alerts Allergy Name Allergy [...] mg tablet 07-05 00:00: 00 Yes 1mg Osmni Simons diclofenac potassium 50 mg tablet 07-05 [...] Rate 2015-07-14 16:52:00 18.00 /min Osmin F Roank BP Systolic 2015-07-06 17:14:00 130 mm[Hg] Step hen F Ronak BP Diastolic 2015-07-06 17:14:00 82 mm[Hg] Ender [...] Rate 2014-12-08 13:40:00 85.00 /min Linda en Toma Simons Respiratory Rate 2014-12-08 13:40:00 20.00 /min Osmin Simons BP Diastolic 2014-12-08 13:36:00 90 mm[Hg] Ender Simons Weight Measured 2014-12-08 13:36:00 273.00 pounds Osmin Simons Height Measured 2014-12-08 13:36:00 62.50 inches Osmin Simons Body Temperature 2014-12-08 13:36:00 97.50 degrees Osmin Simons Heart Rate 2014-12-08 13:36:00 85.00 /min Linda en Toma Simons Respiratory Rate 2014-12-08 13:36:00 20.00 /min Osmin Simons BP Systolic 2014-12-08 13:36:00 150 mm[Hg] Rayo Simons Encounters Start Date/Time End Date/Time Encounter Type Admission Type Attending [facility] Care Department Encounter ID Source 2024-04-27 10:44:34 2024-04-27 10:44:34 Outpatient [facility] [id number] Osmin Simons 2024-04-23 10:06:36 2024-04-23 10:06:36 Outpatient [facility] [id number] Osmin Simons 2024-04-23 00:00:00 2024-04-23 00:00:00 Outpatient Visit [facility] [id number] Osmin Simons Results Test Description Test Time Test Comments Results Result Co mments Source Osmin SimonsHEMOGLOBIN [id number] 00:00:00* Test Item Value Reference Range Interpretation Comme robby HEMOGLOBIN A1c (test code = 4548-4) 9.8 %oftotalHgb Osmin SimonsVITAMIN B 12 AND FOLIC [id number] 00:00:00* Test Item Value Reference Range Interpretation Comme nts VITAMIN B-12 (test code = 2840) 330 PG/ML FOLIC ACID (test code = 2695) 9.6 NG/ML Osmin [id number] 00:00:00* Test Item Value Reference Range Interpretation Comme nts FERRITIN (test code = 5) 10 NG/ML Osmin SimonsIRON BINDING CAPACITY AND IRON AND % [id number] 00:00:00* Test Item Value Reference Range Interpretation Comme nts IRON, SERUM (test code = 2) 23 UG/DL UNSATURATED IBC (test code = 50573) 404 UG/DL CALC TOTAL IBC (test code = 7) 427 UG/DL CALC % IRON SAT (test code = 2078) 5 % Osmin SimonsRETICULOCYTE [id number] 00:00:00* Test Item Value Reference Range Interpretation Comme nts RETICULOCYTE COUNT (test code = 1018) 1.4 % Osmin SimonsLIPID [id number] 00:00:00* Test Item Value Reference Range Interpretation Comme nts CHOLESTEROL (test code = 2210) 190 MG/DL TRIGLYCERIDES (test code = 2232) 168 MG/DL HDL CHOLESTEROL (test code = 2220) 37 MG/DL CALCULATED LDL CHOL (test co de = 2237) 119 MG/DL RISK RATIO LDL/HDL (test cod e = 2238) 3.23 RATIO Osmin SimonsHEMOGLOBIN [id number] 00:00:00* Test Item Value Reference Range Interpretation Comme nts HEMOGLOBIN A1c (test code = 57996) 6.4 % Osmin SimonsCBC W/AUTO [id number] 00:00:00* Test Item Value Reference Range Interpretation [...] = 2821) 2.7 UIU/ML Osmin SimonsCOMPREHENSIVE METABOLIC [id number] 00:00:00* Test Item Value Reference Range Interpretation Comme nts GLUCOSE (test code = 2217) 99 MG/DL BUN (test code = 2208) 9 MG/DL CREATININE (test code = 2214) 0.50 MG/DL eGFR AMER. (test cod e = 13088) 146 ML/MIN/1.73 eGFR NON- AMER. (test code = 68465) 126 ML/MIN/1.73 CALCULATED BUN/CREAT (test code = [...] Notes Date/Time Note Provider Source Osmin Simons [facility]
[2024-05-02] MEDS ORDERED: ONDANSETRON 4 MG/2 ML VIAL ONE (08:37)
[2024-05-02] MEDS ORDERED: FAMOTIDINE 20 MG/2 ML VIAL IV ONE (08:51)
[2024-05-02 08:58] LABS: Absolute Basophils 0.1 K/uL (0-0.5); Absolute Eosinophils 0.1 K/uL (0-0.5); Absolute Lymphocytes (CBC) 1.6 K/uL (0.7-4.9); Absolute Monocytes 0.7 K/uL (0.1-1.3); Absolute Neutrophil 6.1 K/uL (1.8-8.0); Basophils % 0.9 % (0-1.3); Eosinophils % 1.6 % (0-4.4); Hematocrit 34.3 % (36.0-45.0); Hemoglobin 11.3 g/dL (12.0-15.0); Lymphocytes % 18.4 % (15.3-44.8); MCH 24.6 pg (27.0-35.0); MCHC 32.8 g/dL (32.0-36.0); MPV 7.9 fL (7.6-11.3); Monocytes % 8.5 % (3.3-12.3); Neutrophils % 70.6 % (41.7-73.7); Platelets 355 thou/uL (152-406); RBC Red Blood Cell Count 4.58 M/uL (3.86-4.86); Red Cell Distribution Width 16.8 % (12.1-15.2)
[2024-05-02 09:24] LABS: ALT/SGPT 31 U/L (13-56); AST/SGOT 16 U/L (15-37); Albumin 3.2 g/dL (3.4-5.0); Albumin/Globulin Ratio 0.8 (1.1-1.8); Alkaline Phosphatase 78 U/L (45-117); Anion Gap 11.3 mEq/L (5.0-15.0); BUN Blood Urea Nitrogen 15 mg/dL (7-18); Bicarbonate 27 mEq/L (21-32); Bilirubin Total 0.8 mg/dL (0.2-1.0); Globulin 4.1 g/dL (2.3-3.5); Glomerular Filtration Rate 103 ml/min (=/>90); Glucose Level 318 mg/dL (74-106); NT PRO-BNP 80 pg/mL (<125); Potassium 4.3 mEq/L (3.5-5.1); Protein, Total 7.3 g/dL (6.4-8.2); Sodium Level 132 mEq/L (136-145); Troponin High Sensitivity 12.9 pg/mL (<58.9)
[2024-05-02 09:25] LABS: Bilirubin Direct < 0.2 mg/dL (0-0.2); Bilirubin Indirect, Calculated 0.6 mg/dL (0.2-0.8)
--- NOTE | 2024-05-02 09:41 | RAD REPORT ---
Procedure: Chest Single View HISTORY: Shortness of breath COMPARISON: April 28, 2024 FINDINGS: The bilateral pulmonary opacities appear resolved. No significant pleural effusion noted. The heart is moderately enlarged IMPRESSION: No acute abnormality is displayed.
--- NOTE | 2024-05-02 09:52 | EDPHYS ---
Physician Documentation [facility] Name: Sally Mclaughlin Age: 43 yrs Sex: Female : 1980 Arrival Date: 05/02/2024 Time: 08: Bed 17 Private MD: ED Physician Jazmyne Harmon HPI: 05/02 08:35 This 43 yrs old Female presents to ER via EMS with complaints of sp3 Nausea/Vomiting. 08:35 43-year-old female with history of acid reflux, bipolar disease, chronic anemia, sp3 diabetes, hypertension, recent admission for CHF exacerbation discharged yesterday now presents via EMS for recurrent nausea vomiting and symptoms of gastritis. She denies any chest pain, significant shortness of breath other than her baseline amount, back pain, lower abdominal pain, diarrhea, fever, rash, bleeding, or any other signs or symptoms on ROS at this time.. 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 - Infectious Disease History:: Denies. - Social history:: Smoking status: Patient denies any tobacco usage or history of. ROS: 08:36 Constitutional: Negative for fever, chills, and weight loss, Eyes: Negative for injury, sp3 pain, redness, and discharge, ENT: Negative for injury, pain, and discharge, Neck: Negative for injury, pain, and swelling, Cardiovascular: Negative for chest pain, palpitations, and edema, Back: Negative for injury and pain, MS/Extremity: Negative for injury and deformity, Skin: Negative for injury, rash, and discoloration, Neuro: Negative for headache, weakness, numbness, tingling, and seizure, Psych: Negative for depression, anxiety, suicide ideation, homicidal ideation, and hallucinations, Allergy/Immunology: Negative for hives, rash, and allergies, Endocrine: Negative for neck swelling, polydipsia, polyuria, polyphagia, and marked weight changes, Hematologic/Lymphatic: Negative for swollen nodes, abnormal bleeding, and unusual bruising, 08:36 All other systems are negative, Exam: 08:36 Constitutional: This is a well developed, well nourished patient who is awake, alert, sp3 and in no acute distress. Head/Face: Normocephalic, atraumatic. Eyes: Pupils equal round and reactive to light, extra-ocular motions intact. Lids and lashes normal. Conjunctiva and sclera are non-icteric and not injected. Cornea within normal limits. Periorbital areas with no swelling, redness, or edema. Neck: Trachea midline, no thyromegaly or masses palpated, and no cervical lymphadenopathy. Supple, full range of motion without nuchal rigidity, or vertebral point tenderness. No Meningismus. Chest/axilla: Normal chest wall appearance and motion. Nontender with no deformity. No lesions are appreciated. Cardiovascular: Regular rate and rhythm with a normal S1 and S2. No gallops, murmurs, or rubs. Normal PMI, no JVD. No pulse deficits. Back: No spinal tenderness. No costovertebral tenderness. Full range of motion. Skin: Warm, dry with normal turgor. Normal color with no rashes, no lesions, and no evidence of cellulitis. MS/ Extremity: Pulses equal, no cyanosis. Neurovascular intact. Full, normal range of motion. Neuro: Awake and alert, GCS 15, oriented to person, place, time, and situation. Cranial nerves II-XII grossly intact. Motor strength 5/5 in all extremities. Sensory grossly intact. Cerebellar exam normal. Normal gait. Psych: Awake, alert, with orientation to person, place and time. Behavior, mood, and affect are within normal limits. 09:13 ECG was reviewed by the Attending Physician. EKG demonstrates normal sinus rhythm at 93 sp3 bpm with normal intervals QTc 477, normal QRS, leftward axis and nonspecific diffuse ST/T changes without evidence of acute ischemia. Vital Signs: 08:28 BP 152 / 82; Pulse 88; Resp 20; Temp 98; Pulse Ox 98% ; ll1 09:09 BP 186 / 82; Pulse 86; Resp 18; Pulse Ox 100% on R/A; ll1 10:12 BP 167 / 82; Pulse 81; Resp 18; Pulse Ox 98% on R/A; ll1 MDM: 08:30 Medical Screening Exam initiated sp3 08:36 Data reviewed: vital signs, nurses notes, old medical records, lab test result(s), EKG, sp3 radiologic studies. ED course: 43-year-old female with PMH above now with nausea, mild emesis and gastritis symptoms. Workup will include general labs, chest x-ray, EKG and ondansetron IV for symptomatic control. Consider other GI meds as well. Disposition pending workup and patient course. I am not highly species of acute coronary syndrome, CHF exacerbation, sepsis, shock or any other critical pathology at this time.. 09:51 ED course: Full workup negative. Patient resting comfortably in no acute distress. No sp3 active vomiting.. 05/02 08:32 Order name: Basic Metabolic Panel; Complete Time: 09:42 sp3 05/02 08:32 Order name: CBC with Diff; Complete Time: 09:42 sp3 05/02 08:32 Order name: LFT's; Complete Time: 09:42 sp3 05/02 08:32 Order name: Magnesium; Complete Time: 09:42 sp3 05/02 08:32 Order name: NT PRO-BNP; Complete Time: 09:42 sp3 05/02 08:32 Order name: Troponin HS; Complete Time: 09:42 sp3 05/02 08:37 Order name: Lipase sp3 05/02 08:32 Order name: XRAY Chest (1 view); Complete Time: 09:42 sp3 05/02 08:32 Order name: Cardiac monitoring; Complete Time: 09:09 sp3 05/02 08:32 Order name: EKG - Nurse/Tech; Complete Time: 09:09 sp3 05/02 08:32 Order name: IV Saline Lock; Complete Time: 08:48 sp3 05/02 08:32 Order name: Labs collected and sent; Complete Time: 08:48 sp3 05/02 08:32 Order name: O2 Per Protocol; Complete Time: 08:42 sp3 05/02 08:32 Order name: O2 Sat Monitoring; Complete Time: 08:42 sp3 Administered Medications: 08:55 Drug: Ondansetron IVP 4 mg IVP once; over 2 minutes Route: IVP; Site: right antecubital;ll1 10:24 Follow up: Response: No adverse reaction; Nausea is decreased; RASS: Alert and Calm (0) ll1 08:55 Drug: Famotidine IVP 10 mg IVP once; dilute with 10 mL 0.9% NaCl, give over 2 minutes ll1 Route: IVP; Site: right antecubital; 10:24 Follow up: Response: No adverse reaction ll1 Disposition Summary: 05/02/24 09:51 Discharge Ordered Notes: Location: Home sp3 Condition: Stable sp3 Diagnosis - Gastritis, epigastric pain sp3 Followup: sp3 - With: Private Physician - When: Upon discharge from the Emergency Department - Reason: Continuance of care Discharge Instructions: - Discharge Summary Sheet sp3 - Gastritis, Adult sp3 Forms: - Medication Reconciliation Form sp3 - Antibiotic Education sp3 - Prescription Opioid Use sp3 - Patient Portal Instructions sp3 - Leadership Thank You Letter sp3 Prescriptions: - Pepcid 20 mg Oral Tablet - take 1 tablet ORAL route once daily for 10 days; 10 tablet; Refills: 0, Product sp3 Selection Permitted Signatures: Dispatcher [employer] Preston Rangel RN RN ll1 Jazmyne Harmon MD MD sp3 Corrections: (The following items were deleted from the chart) 08:32 08:32 BASIC METABOLIC PANEL+C.LAB.BRZ ordered. EDMS EDMS 08:32 08:32 CBC+H.LAB.BRZ ordered. EDMS EDMS 08:32 08:32 HEPATIC FUNCTION+C.LAB.BRZ ordered. EDMS EDMS 08:32 08:32 MAGNESIUM+C.LAB.BRZ ordered. EDMS EDMS 08:32 08:32 PROBNP+C.LAB.BRZ ordered. EDMS EDMS 08:32 08:32 Troponin High Sensitivity+C.LAB.BRZ ordered. EDMS EDMS 08:33 08:33 Chest Single View+RAD.RAD.BRZ ordered. EDMS EDMS
--- NOTE | 2024-05-02 09:52 | ER ---
Nurse's Notes [facility] Name: Sally Mclaughlin Age: 43 yrs Sex: Female : 1980 Arrival Date: 05/02/2024 Time: 08: Bed 17 Private MD: Diagnosis: Gastritis, epigastric pain Presentation: 05/02 08:28 Chief complaint: Patient states: Weak, N/V began today. Released yesterday for CHF ll1 hospitalization. Coronavirus screen: Client denies travel out of the [place] in the last 14 days. fatigue, nausea, vomiting. Client presents with at least one sign or symptom that may indicate coronavirus-19. Standard/surgical mask placed on the client. Ebola Screen: Patient denies travel to an Ebola-affected area in the 21 days before illness onset. Initial Sepsis Screen: Does the patient meet any 2 criteria? No. Patient's initial sepsis screen is negative. Does the patient have a suspected source of infection? No. Patient's initial sepsis screen is negative. Risk Assessment: Do you want to hurt yourself or someone else? Patient reports no desire to harm self or others. Onset of symptoms was May 02, 2024. 08:28 Method Of Arrival: EMS: [facility] ll1 08:28 Acuity: CAL 3 ll1 Triage Assessment: 08:31 General: Appears uncomfortable, Behavior is calm, cooperative, appropriate for age, ll1 Reports fatigue for. Pain: Denies pain. Neuro: Reports weakness. GI: Reports nausea, vomiting. 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 - Infectious Disease History:: Denies. - Social history:: Smoking status: Patient denies any tobacco usage or history of. Screenin:10 [facility] ED Fall Risk Assessment (Adult) History of falling in the last 3 months, ll1 including since admission No falls in past 3 months (0 pts) Confusion or Disorientation No (0 pts) Intoxicated or Sedated No (0 pts) Impaired Gait No (0 pts) Mobility Assist Device Used No (0 pt) Altered Elimination No (0 pt) Score/Fall Risk Level 0 - 2 = Low Risk Maintained a safe environment, Hourly rounding (assess needs \T\ fall precautionary measures) done. Abuse screen: Denies threats or abuse. Nutritional screening: No deficits noted. Tuberculosis screening: No symptoms or risk factors identified. Assessment: 09:10 Reassessment: No changes from previously documented assessment. Patient and/or family ll1 updated on plan of care and expected duration. Pain level reassessed. Patient is alert, oriented x 3, equal unlabored respirations, skin warm/dry/pink. 10:13 GI: Abdomen is round. ll1 Vital Signs: 08:28 BP 152 / 82; Pulse 88; Resp 20; Temp 98; Pulse Ox 98% ; ll1 09:09 BP 186 / 82; Pulse 86; Resp 18; Pulse Ox 100% on R/A; ll1 10:12 BP 167 / 82; Pulse 81; Resp 18; Pulse Ox 98% on R/A; ll1 ED Course: 08:28 Patient arrived in ED. ll1 08:29 Jazmyne Harmon MD is Attending Physician. sp3 08:31 Triage completed. ll1 08:31 Arm band placed on. ll1 08:45 Initial lab(s) drawn, by me, sent to lab. Inserted saline lock: 22 gauge in right ll1 antecubital area, using aseptic technique. Blood collected. Flushed with 10 mL NS. 09:09 Preston Everett, RN is Primary Nurse. ll1 09:10 Patient has correct armband on for positive identification. Provided Education on: ER ll1 procedures and process. Door closed. Lights dimmed. Warm blanket given. 09:15 XRAY Chest (1 view) In Process Unspecified. EDMS 10:13 No provider procedures requiring assistance completed. IV discontinued, intact, ll1 bleeding controlled, No redness/swelling at site. Pressure dressing applied. Administered Medications: 08:55 Drug: Ondansetron IVP 4 mg IVP once; over 2 minutes Route: IVP; Site: right antecubital;ll1 10:24 Follow up: Response: No adverse reaction; Nausea is decreased; RASS: Alert and Calm (0) ll1 08:55 Drug: Famotidine IVP 10 mg IVP once; dilute with 10 mL 0.9% NaCl, give over 2 minutes ll1 Route: IVP; Site: right antecubital; 10:24 Follow up: Response: No adverse reaction ll1 Medication: 09:10 VIS not applicable for this client. ll1 Outcome: 09:51 Discharge ordered by . sp3 10:13 Patient left the ED. ll1 10:13 Discharged to home ambulatory, ll1 10:13 Condition: stable 10:13 Discharge instructions given to patient, Instructed on discharge instructions, follow up and referral plans. medication usage, Demonstrated understanding of instructions, follow-up care, medications, Prescriptions given X 1, Signatures: Dispatcher [employer] Preston Rangel, RN RN ll1 Jazmyne Harmon MD MD sp3
[2024-05-02 10:24] VITALS: TEMP 98
[2024-05-02 10:31] VITALS: BP 186/82; O2SAT 100
--- NOTE | 2024-05-04 12:05 | EKG ---
Test Date: 2024-05-02 Test Time: 09:04:51 Instructional Facilitator: HAO MEASUREMENT RESULTS: Intervals: Rate: 93 ME: 186 QRSD: 96 QT: 384 QTc: 477 [place]: P: 59 ME: 186 QRS: -18 T: 62 INTERPRETIVE STATEMENTS: Normal sinus rhythm Moderate voltage criteria for LVH, may be normal variant Borderline ECG Compared to ECG 04/28/2024 09:33:34 Left ventricular hypertrophy now present Atrial premature complex(es) no longer present Electronically Signed On 05-04-24 12:00:27 CDT by Anthony Meza
== END 2024-05-02 10:13 | disposition home or self-care (01) ==
LOC: ER 08:22
DX: K29.70 Gastritis, unspecified, without bleeding (principal)
CPT/HCPCS: 93005; 85025; 80048; 36415; 83735; 80076; 84484; 83690; 83880; 71045; 96375; 96374; 99284; J2405

== ENCOUNTER 2024-06-22 17:11 | Emergency (ER) | payer MEDICAID ==
--- OUTSIDE RECORDS SUMMARY | 2024-06-22 17:16 | XMS REPORT | Continuity of Care Document ---
Author Name Unknown Address [address] [facility] [address] [place] [address] [facility] Address [address] [facility] [address] [place] [address] Care Team Providers Care Desk Reporter Name Role Phone Damaso Payne Primary Care Physician Allergies, Adverse Reactions, Alerts Allergy Name Allergy Type Status Severity Reaction(s) Onset Date Inactive Date Treating Clinician Comments Source Penicill ins Propensi ty to adverse reaction to drug Active 04-18 00:00: 00 Osmin Toma Ronak Phenerga n Propensi ty to adverse reaction to drug Inactiv e 2014-02 00:00: 00 Osmin Toma Simons Medications Ordered Medication Name Filled Medication Name Start Date Stop Date Current Medication? Ordering Clinician Indication Dosage Frequency Signature (SIG) Comments Components Source Lantus Solostar U-100 Insulin 100 unit/mL (3 mL) subcutaneou s pen 06-15 00:00: 00 Yes (3 mL) Osmin Simons albuterol sulfate HFA 90 mcg/actuati on aerosol inhaler - 00:00: 00 Yes 2mcg/ac tuation Osmin Simons cetirizine 10 mg tablet 5-05 00:00: 00 Yes 1mg sOmin Simons losartan 25 mg tablet 5-05 00:00: 00 Yes 1mg Osmin Simons Flonase Allergy Relief 50 mcg/actuati on nasal spray,suspe nsion -05 00:00: 00 Yes 1mcg/ac tuation Osmin Simons chlorhexidi ne gluconate 0.12 % mouthwash 4-24 00:00: 00 Yes 15% Osmin Toma Simons albuterol sulfate HFA 90 mcg/actuati on aerosol inhaler 05-21 00:00: 00 Yes 2mcg/ac tuation Osmin Simons cetirizine 10 mg tablet 05-21 00:00: 00 Yes 1mg Osmin Simons Flonase Allergy Relief 50 mcg/actuati on nasal spray,suspe nsion 05-21 00:00: 00 Yes 1mcg/ac tuation Osmin Simons Lantus Solostar U-100 Insulin 100 unit/mL (3 mL) subcutaneou s pen 05-14 00:00: 00 Yes (3 mL) Osmin Simons cetirizine 10 mg capsule 05-14 00:00: 00 Yes 1mg Osmin Simons losartan 25 mg tablet 04-23 00:00: 00 Yes 1mg Osmin Simons Basaglar KwikPen U-100 Insulin 100 unit/mL (3 mL) subcutaneou s 04-23 00:00: 00 Yes (3 mL) Osmin Simons ferrous fumarate 324 mg (106 [...] 2014-02 00:00: 00 Yes 1mcg Osmin Simons Immunizations Ordered Immunization Name Filled Immunization Name Date Status Comments Source Prevnar 20 Prevnar 20 2024-05-14 00:00:00 Completed Osmin Simons nfluenza, recombinant nfluenza, recombinant 2024-03-11 00:00:00 Completed Osmin Simons Spikevax 12+ ( formula) Spikevax 12+ ( formula) 2024-03-11 00:00:00 Completed Osmin Simons Vital Signs Vital Name Observation Time Observation Value Comments S ourkylah BP Systolic 2024-06-15 08:57:00 149 mm[Hg] Step hen Toma Simons BP Diastolic 2024-06-15 08:57:00 89 mm[Hg] Ender phen Toma Simons Weight Measured 2024-06-15 08:57:00 282.60 pounds Osmin Simons Height Measured 2024-06-15 08:57:00 62.50 inches Osmin Simons Body Temperature 2024-06-15 08:57:00 98.40 degrees Osmin Simons Heart Rate 2024-06-15 08:57:00 97.00 /min Linda en Toma Simons Respiratory Rate 2024-06-15 08:57:00 18.00 /min Osmin Simons BP Systolic 2024-06-04 15:41:00 162 mm[Hg] Step hen Toma Simons BP Diastolic 2024-06-04 15:41:00 90 mm[Hg] Ender phen Toma Simons Weight Measured 2024-06-04 15:41:00 282.20 pounds Osmin Simons Height Measured 2024-06-04 15:41:00 62.50 inches Osmin Simons Body Temperature 2024-06-04 15:41:00 97.80 degrees Osmin Simons Heart Rate 2024-06-04 15:41:00 89.00 /min Linda en F Ronak Respiratory Rate 2024-06-04 15:41:00 17.00 /min Osmin F Ronak BP Systolic 2024-05-21 10:14:00 124 mm[Hg] Step hen F Ronak BP Diastolic 2024-05-21 10:14:00 76 mm[Hg] Ender phen F Ronak Weight Measured 2024-05-21 10:14:00 284.60 pounds Osmin F Ronak Height Measured 2024-05-21 10:14:00 62.50 inches Osmin F Ronak Body Temperature 2024-05-21 10:14:00 98.50 degrees Osmin F Ronak Heart Rate 2024-05-21 10:14:00 81.00 /min Linda en F Ronak Respiratory Rate 2024-05-21 10:14:00 18.00 /min Osmin F Ronak BP Systolic 2024-05-21 10:06:00 124 mm[Hg] Step hen F Ronak BP Diastolic 2024-05-21 10:06:00 76 mm[Hg] Ender phen F Ronak Weight Measured 2024-05-21 10:06:00 284.60 pounds Osmin F Ronak Height Measured 2024-05-21 10:06:00 62.50 inches Osmin F Ronak Body Temperature 2024-05-21 10:06:00 98.50 degrees Osmin F Ronak Heart Rate 2024-05-21 10:06:00 81.00 /min Linda en F Ronak Respiratory Rate 2024-05-21 10:06:00 18.00 /min Osmin F Ronak BP Systolic 2024-05-14 08:52:00 117 mm[Hg] Step hen F Ronak BP Diastolic 2024-05-14 08:52:00 77 mm[Hg] Ender phen F Ronak Weight Measured 2024-05-14 08:52:00 Osmin F Ronak Height Measured 2024-05-14 08:52:00 62.50 inches Osmin F Ronak Body Temperature 2024-05-14 08:52:00 98.70 degrees Osmin F Ronak Heart Rate 2024-05-14 08:52:00 83.00 /min Linda en F Ronak Respiratory Rate 2024-05-14 08:52:00 18.00 /min Osmin F Ronak BP Systolic 2024-05-13 10:49:00 130 mm[Hg] Step hen F Ronak BP Diastolic 2024-05-13 10:49:00 81 mm[Hg] Ender phen F Ronak Weight Measured 2024-05-13 10:49:00 Osmin F Ronak Height Measured 2024-05-13 10:49:00 62.50 inches Osmin F Ronak Body Temperature 2024-05-13 10:49:00 98.10 degrees Osmin F Ronak Heart Rate 2024-05-13 10:49:00 85.00 /min Linda en F Ronak Respiratory Rate 2024-05-13 10:49:00 18.00 /min Osmin F Ronak Height Measured 2024-04-27 11:01:00 62.50 inches Osmin F Ronak Body Temperature 2024-04-27 11:01:00 97.60 degrees Osmin F Ronak Heart Rate 2024-04-27 11:01:00 92.00 /min Linda en F Ronak Respiratory Rate 2024-04-27 11:01:00 18.00 /min Osmin F Ronak BP Systolic 2024-04-27 11:01:00 188 mm[Hg] Step hen F Ronak BP Diastolic 2024-04-27 11:01:00 97 mm[Hg] Ender phen F Ronak Weight Measured 2024-04-27 11:01:00 292.40 pounds Osmin F Ronak BP Systolic 2024-04-23 10:08:00 176 mm[Hg] Step hen F Ronak BP Diastolic 2024-04-23 10:08:00 100 mm[Hg] Ender phen F Ronak Weight Measured 2024-04-23 10:08:00 265.00 pounds Osmin F Ronak Height Measured 2024-04-23 10:08:00 62.50 inches Osmin F Ronak Body Temperature 2024-04-23 10:08:00 98.10 degrees Osmin F Ronak Heart Rate 2024-04-23 10:08:00 101.00 /min Step [...] Measured 2015-07-06 17:14:00 264.40 pounds Osmin F Rnoak Height Measured 2015-07-06 17:14:00 62.50 inches Osmin [...] 2014-12-08 13:40:00 90 mm[Hg] Ender phen F Ornak Weight Measured 2014-12-08 13:40:00 273.00 pounds Osmin F Ronak Height Measured 2014-12-08 13:40:00 62.50 inches Osmin F Ronak Body Temperature 2014-12-08 13:40:00 97.50 degrees Osmin F Ronak Heart Rate 2014-12-08 13:40:00 85.00 /min Linda en F Ronak Respiratory Rate 2014-12-08 13:40:00 20.00 /min Osmin F Ronak BP Systolic 2014-12-08 13:36:00 150 mm[Hg] Step hen F Ronak BP Diastolic 2014-12-08 13:36:00 90 mm[Hg] Ender phen F Ronak Weight Measured 2014-12-08 13:36:00 273.00 pounds Osmin Simons Height Measured 2014-12-08 13:36:00 62.50 inches Osmin Simons Body Temperature 2014-12-08 13:36:00 97.50 degrees Osmin Simons Heart Rate 2014-12-08 13:36:00 85.00 /min Linda Simons Respiratory Rate 2014-12-08 13:36:00 20.00 /min Osmin Simons Encounters Start Date/Time End Date/Time Encounter Type Admission Type Attending [facility] Care Department Encounter ID Source 2024-06-22 15:08:50 2024-06-22 15:08:50 Outpatient SFA SFA [id number] Osmin Simons 2024-06-15 08:46:19 2024-06-15 08:46:19 Outpatient SFA SFA [id number] Osmin Simons 2024-06-15 00:00:00 2024-06-15 00:00:00 Outpatient Visit SFA [id number] Osmin Simons 2024-06-04 15:28:04 2024-06-04 15:28:04 Outpatient SFA SFA [id number] Osmin Simons 2024-06-04 00:00:00 2024-06-04 00:00:00 Outpatient Visit SFA [id number] Osmin Simons 2024-05-21 09:57:36 2024-05-21 09:57:36 Outpatient SFA SFA [id number] Osmin Simons 2024-05-21 00:00:00 2024-05-21 00:00:00 Outpatient Visit SFA [id number] Osmin Simons 2024-05-14 08:39:59 2024-05-14 08:39:59 Outpatient SFA SFA [id number] Osmin Simons 2024-05-14 00:00:2024-05-14 00:00:00 Outpatient Visit [facility] [id number] Osmin Simons 2024-05-13 10:34:29 2024-05-13 10:34:29 Outpatient [facility] [id number] Osmin Simons 2024-04-27 10:44:34 2024-04-27 10:44:34 Outpatient [facility] 7 Osmin Chua Ronak 2024-04-23 10:06:36 2024-04-23 10:06:36 Outpatient [facility] [id number] Osmin Chua Ronak 2024-04-23 00:00:00 2024-04-23 00:00:00 Outpatient Visit [facility] [id number] Osmin Simons Results Test Description Test Time Test Comments Results Result Co mments Source [facility] [id number] 00:00:00* Test Item Value Reference Range Interpretation Comme nts HEPATITIS A AB, TOTAL (test code = 42586-0) REACTIVE HEPATITIS B SURFACE ANTIBODY QL (test code = 42528-2) NON-REACTIVE HEPATITIS B SURFACE ANTIGEN (test code = 5196-1) NON-REACTIVE CONFIRMATION (test code = 7905-3) DNR HEPATITIS B CORE AB TOTAL (t est code = 72549-1) NON-REACTIVE HEPATITIS C ANTIBODY (test c ode = 64297-0) NON-REACTIVE Osmin SimonsMICROALBUMIN, RANDOM URINE (W/CREATININE)2024-05-18 00:00:00* Test Item Value Reference Range Interpretation Comme nts CREATININE, RANDOM URINE (te st code = 2161-8) 81 mg/dL ALBUMIN, URINE (test code = 60981-4) 7.7 mg/dL ALBUMIN/CREATININE RATIO, RA NDOM URINE (test code = 9318-7) 95 mg/gcreat Osmin SimonsPATITIS PANEL, [id number] 00:00:00* Test Item Value Reference Range Interpretation Comme nts HEPATITIS A AB, TOTAL (test code = 34541-7) REACTIVE HEPATITIS B SURFACE ANTIBODY QL (test code = 54740-3) NON-REACTIVE HEPATITIS B SURFACE ANTIGEN (test code = 5196-1) NON-REACTIVE CONFIRMATION (test code = 7905-3) DNR HEPATITIS B CORE AB TOTAL (t est code = 02833-6) NON-REACTIVE HEPATITIS C ANTIBODY (test c ode = 10200-5) NON-REACTIVE Osmin SimonsMICROALBUMIN, RANDOM URINE (W/CREATININE)2024-05-18 00:00:00* Test Item Value Reference Range Interpretation Comme nts CREATININE, RANDOM URINE (te st code = 2161-8) 81 mg/dL ALBUMIN, URINE (test code = 53023-2) 7.7 mg/dL ALBUMIN/CREATININE RATIO, RA NDOM URINE (test code = 9318-7) 95 mg/gcreat Osmin SimonsHEPATITIS PANEL, [id number] 00:00:00* Test Item Value Reference Range Interpretation Comme nts HEPATITIS A AB, TOTAL (test code = 91465-8) REACTIVE HEPATITIS B SURFACE ANTIBODY QL (test code = 11913-3) NON-REACTIVE HEPATITIS B SURFACE ANTIGEN (test code = 5196-1) NON-REACTIVE CONFIRMATION (test code = 7905-3) DNR HEPATITIS B CORE AB TOTAL (t est code = 18713-4) NON-REACTIVE HEPATITIS C ANTIBODY (test c ode = 52730-1) NON-REACTIVE Osmin SimonsCOMPREHENSIVE METABOLIC [id number] 00:00:00* Test Item Value Reference Range Interpretation Comme nts GLUCOSE (test code = 2345-7) 160 mg/dL UREA NITROGEN (BUN) (test code = 3094-0) 8 mg/dL CREATININE (test code = 2160-0) 0.53 mg/dL EGFR (test code = 70135-1) 118 mL/min/1.73m2 BUN/CREATININE RATIO (test code = 3097-3) SEE NOTE: (calc) SODIUM (test code = 2951-2) 137 mmol/L POTASSIUM (test code = 2823-3) 4.2 mmol/L CHLORIDE (test code = 2075-0) 98 mmol/L CARBON DIOXIDE (test code = 2027-9) 31 mmol/L CALCIUM (test code = 13977-4) 9.8 mg/dL PROTEIN, TOTAL (test code = 2885-2) 7.5 g/dL ALBUMIN (test code = 1751-7) 4.4 g/dL GLOBULIN (test code = 12022-3) 3.1 g/dL(calc) ALBUMIN/GLOBULIN RATIO (test code = 1759-0) 1.4 (calc) BILIRUBIN, TOTAL (test code = 1974-) 0.9 mg/dL ALKALINE PHOSPHATASE (test code = 6768-6) 79 U/L AST (test code = 1920-8) 20 U/L ALT (test code = 1742-6) 24 U/L Osmin Chua AustinHEMOGLOBIN [id number] 00:00:00* Test Item Value Reference Range Interpretation Comme nts HEMOGLOBIN A1c (test code = 4548-4) 9.8 %oftotalHgb Osmin SimonsCOMPREHENSIVE METABOLIC [id number] 00:00:00* Test Item Value Reference Range Interpretation Comme nts GLUCOSE (test code = 2345-7) 160 mg/dL UREA NITROGEN (BUN) (test code = 3094-0) 8 mg/dL CREATININE (test code = 2160-0) 0.53 mg/dL EGFR (test code = 11738-3) 118 mL/min/1.73m2 BUN/CREATININE RATIO (test code = 3097-3) SEE NOTE: (calc) SODIUM (test code = 2951-2) 137 mmol/L POTASSIUM (test code = 2823-3) 4.2 mmol/L CHLORIDE (test code = 2075-0) 98 mmol/L CARBON DIOXIDE (test code = 8-9) 31 mmol/L CALCIUM (test code = 52543-9) 9.8 mg/dL PROTEIN, TOTAL (test code = 2885-2) 7.5 g/dL ALBUMIN (test code = 1751-7) 4.4 g/dL GLOBULIN (test code = 29713-2) 3.1 g/dL(calc) ALBUMIN/GLOBULIN RATIO (test code = 1759-0) 1.4 (calc) BILIRUBIN, TOTAL (test code = 1975-2) 0.9 mg/dL ALKALINE PHOSPHATASE (test code = 6768-6) 79 U/L AST (test code = 1920-8) 20 U/L ALT (test code = 1742-6) 24 U/L Osmin Chua AustinHEMOGLOBIN [id number] 00:00:00* Test Item Value Reference Range Interpretation Comme nts HEMOGLOBIN A1c (test code = 4548-4) 9.8 %oftotalHgb Osmin Chua AustinCOMPREHENSIVE METABOLIC [id number] 00:00:00* Test Item Value Reference Range Interpretation Comme nts GLUCOSE (test code = 2345-7) 160 mg/dL UREA NITROGEN (BUN) (test code = 3094-0) 8 mg/dL CREATININE (test code = 2160-0) 0.53 mg/dL EGFR (test code = 64157-7) 118 mL/min/1.73m2 BUN/CREATININE RATIO (test code = 3097-3) SEE NOTE: (calc) SODIUM (test code = 2951-2) 137 mmol/L POTASSIUM (test code = 2823-3) 4.2 mmol/L CHLORIDE (test code = 2075-0) 98 mmol/L CARBON DIOXIDE (test code = 2027-9) 31 mmol/L CALCIUM (test code = 13169-9) 9.8 mg/dL PROTEIN, TOTAL (test code = 2885-2) 7.5 g/dL ALBUMIN (test code = 1751-7) 4.4 g/dL GLOBULIN (test code = 87882-9) 3.1 g/dL(calc) ALBUMIN/GLOBULIN RATIO (test code = 1759-0) 1.4 (calc) BILIRUBIN, TOTAL (test code = 1975-2) 0.9 mg/dL ALKALINE PHOSPHATASE (test code = 6768-6) 79 U/L AST (test code = 1920-8) 20 U/L ALT (test code = 1742-6) 24 U/L Osmin SimonsHEMOGLOBIN [id number] 00:00:00* Test Item Value Reference Range Interpretation Comme nts HEMOGLOBIN A1c (test code = 4548-4) 9.8 %oftotalHgb Osmin Chua AustinCOMPREHENSIVE METABOLIC [id number] 00:00:00* Test Item Value Reference Range Interpretation Comme nts GLUCOSE (test code = 2345-7) 160 mg/dL UREA NITROGEN (BUN) (test code = 3094-0) 8 mg/dL CREATININE (test code = 2160-0) 0.53 mg/dL EGFR (test code = 36036-7) 118 mL/min/1.73m2 BUN/CREATININE RATIO (test code = 3097-3) SEE NOTE: (calc) SODIUM (test code = 2951-2) 137 mmol/L POTASSIUM (test code = 2823-3) 4.2 mmol/L CHLORIDE (test code = 2075-0) 98 mmol/L CARBON DIOXIDE (test code = 2027-9) 31 mmol/L CALCIUM (test code = 59834-9) 9.8 mg/dL PROTEIN, TOTAL (test code = 2885-2) 7.5 g/dL ALBUMIN (test code = 1751-7) 4.4 g/dL GLOBULIN (test code = 19738-5) 3.1 g/dL(calc) ALBUMIN/GLOBULIN RATIO (test code = 1759-0) 1.4 (calc) BILIRUBIN, TOTAL (test code = 1975-2) 0.9 mg/dL ALKALINE PHOSPHATASE (test code = 6768-6) 79 U/L AST (test code = 1920-8) 20 U/L ALT (test code = 1742-6) 24 U/L Osmin SimonsHEMOGLOBIN [id number] 00:00:00* Test Item Value Reference Range Interpretation Comme [facility] HEMOGLOBIN A1c (test code = 4548-4) 9.8 %oftotalHgb Osmin SimonsCOMPREHENSIVE METABOLIC [id number] 00:00:00* Test Item Value Reference Range Interpretation Comme [facility] GLUCOSE (test code = 2345-7) 160 mg/dL UREA NITROGEN (BUN) (test code = 3094-0) 8 mg/dL CREATININE (test code = 2160-0) 0.53 mg/dL EGFR (test code = 24966-7) 118 mL/min/1.73m2 BUN/CREATININE RATIO (test code = 3097-3) SEE NOTE: (calc) SODIUM (test code = 2951-2) 137 mmol/L POTASSIUM (test code = 2823-3) 4.2 mmol/L CHLORIDE (test code = 2075-0) 98 mmol/L CARBON DIOXIDE (test code = 2027-9) 31 mmol/L CALCIUM (test code = 57804-7) 9.8 mg/dL PROTEIN, TOTAL (test code = 2885-2) 7.5 g/dL ALBUMIN (test code = 1751-7) 4.4 g/dL GLOBULIN (test code = 18642-7) 3.1 g/dL(calc) ALBUMIN/GLOBULIN RATIO (test code = 1759-0) 1.4 (calc) BILIRUBIN, TOTAL (test code = 1975-2) 0.9 mg/dL ALKALINE PHOSPHATASE (test code = 6768-6) 79 U/L AST (test code = 1920-8) 20 U/L ALT (test code = 1742-6) 24 U/L Osmin SimonsHEMOGLOBIN [id number] 00:00:00* Test Item Value Reference Range Interpretation Comme nts HEMOGLOBIN A1c (test code = 4548-4) 9.8 %oftotalHgb Osmin F AustinVITAMIN B 12 AND FOLIC [id number] 00:00:00* Test Item Value Reference Range Interpretation Comme nts VITAMIN B-12 (test code = 2840) 330 PG/ML FOLIC ACID (test code = 2695) 9.6 NG/ML Osmin F [id number] 00:00:00* Test Item Value Reference Range Interpretation Comme nts FERRITIN (test code = 2075) 10 NG/ML Osmin F AustinIRON BINDING CAPACITY AND IRON AND % [id number] 00:00:00* Test Item Value Reference Range Interpretation Comme nts IRON, SERUM (test code = 2222) 23 UG/DL UNSATURATED IBC (test code = 02604) 404 UG/DL CALC TOTAL IBC (test code = 2077) 427 UG/DL CALC % IRON SAT (test code = 2079) 5 % Osmin F AustinRETICULOCYTE [id number] 00:00:00* Test Item Value Reference Range Interpretation Comme nts RETICULOCYTE COUNT (test code = 1018) 1.4 % Osmin F AustinVITAMIN B 12 AND FOLIC [id number] 00:00:00* Test Item Value Reference Range Interpretation Comme nts VITAMIN B-12 (test code = 2840) 330 PG/ML FOLIC ACID (test code = 2695) 9.6 NG/ML Osmin F [id number] 00:00:00* Test Item Value Reference Range Interpretation Comme nts FERRITIN (test code = 2075) 10 NG/ML Osmin F AustinIRON BINDING CAPACITY AND IRON AND % [id number] 00:00:00* Test Item Value Reference Range Interpretation Comme nts IRON, SERUM (test code = 2222) 23 UG/DL UNSATURATED IBC (test code = 23278) 404 UG/DL CALC TOTAL IBC (test code = 7) 427 UG/DL CALC % IRON SAT (test code = 2079) 5 % Osmin F AustinRETICULOCYTE [id number] 00:00:00* Test Item Value Reference Range Interpretation Comme nts RETICULOCYTE COUNT (test code = 1018) 1.4 % Osmin F AustinVITAMIN B 12 AND FOLIC [id number] 00:00:00* Test Item Value Reference Range Interpretation Comme nts VITAMIN B-12 (test code = 2840) 330 PG/ML FOLIC ACID (test code = 2695) 9.6 NG/ML Osmin F [id number] 00:00:00* Test Item Value Reference Range Interpretation Comme nts FERRITIN (test code = 5) 10 NG/ML Osmin F AustinIRON BINDING CAPACITY AND IRON AND % [id number] 00:00:00* Test Item Value Reference Range Interpretation Comme nts IRON, SERUM (test code = 2222) 23 UG/DL UNSATURATED IBC (test code = 34507) 404 UG/DL CALC TOTAL IBC (test code = 7) 427 UG/DL CALC % IRON SAT (test code = 2079) 5 % Osmin F AustinRETICULOCYTE [id number] 00:00:00* Test Item Value Reference Range Interpretation Comme nts RETICULOCYTE COUNT (test code = 1018) 1.4 % Osmin F AustinVITAMIN B 12 AND FOLIC [id number] 00:00:00* Test Item Value Reference Range Interpretation Comme nts VITAMIN B-12 (test code = 2840) 330 PG/ML FOLIC ACID (test code = 2695) 9.6 NG/ML Osmin F [id number] 00:00:00* Test Item Value Reference Range Interpretation Comme nts FERRITIN (test code = 2075) 10 NG/ML Osmin F AustinIRON BINDING CAPACITY AND IRON AND % [id number] 00:00:00* Test Item Value Reference Range Interpretation Comme nts IRON, SERUM (test code = 2222) 23 UG/DL UNSATURATED IBC (test code = 82573) 404 UG/DL CALC TOTAL IBC (test code = 7) 427 UG/DL CALC % IRON SAT (test code = 9) 5 % Osmin F AustinRETICULOCYTE [id number] 00:00:00* Test Item Value Reference Range Interpretation Comme nts RETICULOCYTE COUNT (test code = 1018) 1.4 % Osmin F AustinVITAMIN B 12 AND FOLIC [id number] 00:00:00* Test Item Value Reference Range Interpretation Comme nts VITAMIN B-12 (test code = 2840) 330 PG/ML FOLIC ACID (test code = 2695) 9.6 NG/ML Osmin F [id number] 00:00:00* Test Item Value Reference Range Interpretation Comme nts FERRITIN (test code = 2074) 10 NG/ML Osmin SimonsIRON BINDING CAPACITY AND IRON AND % [id number] 00:00:00* Test Item Value Reference Range Interpretation Comme nts IRON, SERUM (test code = 2) 23 UG/DL UNSATURATED IBC (test code = 39164) 404 UG/DL CALC TOTAL IBC (test code = 7) 427 UG/DL CALC % IRON SAT (test code = 9) 5 % Osmin F AustinRETICULOCYTE [id number] 00:00:00* Test Item Value Reference Range Interpretation Comme nts RETICULOCYTE COUNT (test code = 1018) 1.4 % Osmin F AustinCOMPREHENSIVE METABOLIC [id number] 00:00:00* Test Item Value Reference Range Interpretation Comme nts GLUCOSE (test code = 2217) 99 MG/DL BUN (test code = 2208) 9 MG/DL CREATININE (test code = 2214) 0.50 MG/DL eGFR AMER. (test cod e = 03198) 146 ML/MIN/1.73 eGFR NON- AMER. (test code = 60763) 126 ML/MIN/1.73 CALCULATED BUN/CREAT (test code = [...] (test code = 2219) 10 U/L Osmin SimonsLIPID [id number] 00:00:00* Test Item Value Reference Range Interpretation Comme nts CHOLESTEROL (test code = 2210) 190 MG/DL TRIGLYCERIDES (test code = 2232) 168 MG/DL HDL CHOLESTEROL (test code = 2220) 37 MG/DL CALCULATED LDL CHOL (test co de = 2237) 119 MG/DL RISK RATIO LDL/HDL (test cod e = 2238) 3.23 RATIO Osmin SimonsHEMOGLOBIN [id number] 00:00:00* Test Item Value Reference Range Interpretation Comme nts HEMOGLOBIN A1c (test code = 33359) 6.4 % Osmin SimonsCBC W/AUTO [id number] 00:00:00* Test Item Value Reference Range Interpretation [...] (test code = 2821) 2.7 UIU/ML Osmin SimosnCOMPREHENSIVE METABOLIC [id number] 00:00:00* Test Item Value Reference Range Interpretation Comme nts GLUCOSE (test code = 2217) 99 MG/DL BUN (test code = 2208) 9 MG/DL CREATININE (test code = 2214) 0.50 MG/DL eGFR AMER. (test cod e = 63770) 146 ML/MIN/1.73 eGFR NON- AMER. (test code = 37200) 126 ML/MIN/1.73 CALCULATED BUN/CREAT (test code = [...] (test code = 2219) 10 U/L Osmin SimonsLIPID [id number] 00:00:00* Test Item Value Reference Range Interpretation Comme nts CHOLESTEROL (test code = 2210) 190 MG/DL TRIGLYCERIDES (test code = 2232) 168 MG/DL HDL CHOLESTEROL (test code = 2220) 37 MG/DL CALCULATED LDL CHOL (test co de = 2237) 119 MG/DL RISK RATIO LDL/HDL (test cod e = 2238) 3.23 RATIO Osmin SimonsHEMOGLOBIN [id number] 00:00:00* Test Item Value Reference Range Interpretation Comme nts HEMOGLOBIN A1c (test code = 64128) 6.4 % Osmin SimonsCBC W/AUTO [id number] 00:00:00* Test Item Value Reference Range Interpretation [...] = 2821) 2.7 UIU/ML Osmin SimonsCOMPREHENSIVE METABOLIC [id number] 00:00:00* Test Item Value Reference Range Interpretation Comme nts GLUCOSE (test code = 2217) 99 MG/DL BUN (test code = 2208) 9 MG/DL CREATININE (test code = 2214) 0.50 MG/DL eGFR AMER. (test cod e = 62307) 146 ML/MIN/1.73 eGFR NON- AMER. (test code = 31127) 126 ML/MIN/1.73 CALCULATED BUN/CREAT (test code = [...] (test code = 2219) 10 U/L Osmin SimonsLIPID [id number] 00:00:00* Test Item Value Reference Range Interpretation Comme nts CHOLESTEROL (test code = 2210) 190 MG/DL TRIGLYCERIDES (test code = 2232) 168 MG/DL HDL CHOLESTEROL (test code = 2220) 37 MG/DL CALCULATED LDL CHOL (test co de = 2237) 119 MG/DL RISK RATIO LDL/HDL (test cod e = 2238) 3.23 RATIO Osmin SimonsHEMOGLOBIN [id number] 00:00:00* Test Item Value Reference Range Interpretation Comme nts HEMOGLOBIN A1c (test code = 03216) 6.4 % Osmin SimonsCBC W/AUTO [id number] 00:00:00* Test Item Value Reference Range Interpretation [...] = 2821) 2.7 UIU/ML Osmin SimonsCOMPREHENSIVE METABOLIC [id number] 00:00:00* Test Item Value Reference Range Interpretation Comme nts GLUCOSE (test code = 2217) 99 MG/DL BUN (test code = 2208) 9 MG/DL CREATININE (test code = 2214) 0.50 MG/DL eGFR AMER. (test cod e = 54155) 146 ML/MIN/1.73 eGFR NON- AMER. (test code = 64751) 126 ML/MIN/1.73 CALCULATED BUN/CREAT (test code = [...] (test code = 2219) 10 U/L Osmin SimonsLIPID [id number] 00:00:00* Test Item Value Reference Range Interpretation Comme nts CHOLESTEROL (test code = 2210) 190 MG/DL TRIGLYCERIDES (test code = 2232) 168 MG/DL HDL CHOLESTEROL (test code = 2220) 37 MG/DL CALCULATED LDL CHOL (test co de = 2237) 119 MG/DL RISK RATIO LDL/HDL (test cod e = 2238) 3.23 RATIO Osmin SimonsHEMOGLOBIN [id number] 00:00:00* Test Item Value Reference Range Interpretation Comme nts HEMOGLOBIN A1c (test code = 73237) 6.4 % Osmin Chua RonakCBC W/AUTO [id number] 00:00:00* Test Item Value Reference Range Interpretation [...] = 2821) 2.7 UIU/ML Osmin SimonsCOMPREHENSIVE METABOLIC [id number] 00:00:00* Test Item Value Reference Range Interpretation Comme nts GLUCOSE (test code = 2217) 99 MG/DL BUN (test code = 2208) 9 MG/DL CREATININE (test code = 2214) 0.50 MG/DL eGFR AMER. (test cod e = 08863) 146 ML/MIN/1.73 eGFR NON- AMER. (test code = 56371) 126 ML/MIN/1.73 CALCULATED BUN/CREAT (test code = [...] (test code = 2219) 10 U/L Osmin SimonsLIPID [id number] 00:00:00* Test Item Value Reference Range Interpretation Comme nts CHOLESTEROL (test code = 2210) 190 MG/DL TRIGLYCERIDES (test code = 2232) 168 MG/DL HDL CHOLESTEROL (test code = 2220) 37 MG/DL CALCULATED LDL CHOL (test co de = 2237) 119 MG/DL RISK RATIO LDL/HDL (test cod e = 2238) 3.23 RATIO Osmin SimonsHEMOGLOBIN [id number] 00:00:00* Test Item Value Reference Range Interpretation Comme nts HEMOGLOBIN A1c (test code = 92189) 6.4 % Osmin SimonsCBC W/AUTO [id number] 00:00:00* Test Item Value Reference Range Interpretation [...] (test code = 2821) 2.7 UIU/ML Osmin Simons Notes Date/Time Note Provider Source Osmin Grullon [facility]2025-04-24 00:00:00 Osmin Grullon [facility]2025-04-10 00:00:00 Osmin Grullon [facility]2025-04-03 00:00:00 Osmin Grullon [facility]2025-03-13 00:00:00 [facility]
[2024-06-22 18:10] LABS: Specific Gravity 1.009 (1.005-1.030); Sqamous Epithelial <5 /HPF (None Seen); Urine Bacteria None Seen /HPF (<20); Urine Bilirubin NEGATIVE (Negative); Urine Blood Negative (Negative); Urine Clarity Turbid (Clear); Urine Color Colorless (Yellow); Urine Crystals Unidentified Few /HPF (None Seen); Urine Culture Reflex Order NOT NEEDED; Urine Glucose NEGATIVE (Negative); Urine Ketones NEGATIVE (Negative); Urine Microscopic Reflex YN ORDER UMIC; Urine Mucus Slight /HPF (None Seen); Urine Nitrite NEGATIVE (Negative); Urine Protein NEGATIVE (Negative); Urine RBC <5 /HPF (None Seen); Urine Urobilinogen Normal (Normal); Urine WBC <5 /HPF (<5)
[2024-06-22] MEDS ORDERED: FAMOTIDINE 20 MG/2 ML VIAL IV ONE (19:13)
[2024-06-22] MEDS ORDERED: ONDANSETRON 4 MG/2 ML VIAL ONE (19:13)
[2024-06-22] MEDS ORDERED: NA CHLORIDE 0.9% 1,000 ML ONE (19:13)
[2024-06-22 19:32] LABS: Absolute Basophils 0.1 K/uL (0-0.5); Absolute Eosinophils 0.2 K/uL (0-0.5); Absolute Lymphocytes (CBC) 2.8 K/uL (0.7-4.9); Absolute Monocytes 0.8 K/uL (0.1-1.3); Basophils % 0.9 % (0-1.3); Eosinophils % 1.5 % (0-4.4); Hematocrit 34.6 % (36.0-45.0); Hemoglobin 11.5 g/dL (12.0-15.0); Lymphocytes % 26.2 % (15.3-44.8); MCH 25.8 pg (27.0-35.0); MCHC 33.3 g/dL (32.0-36.0); MCV 77.4 fL (80-100); MPV 8.1 fL (7.6-11.3); Neutrophils % 64.4 % (41.7-73.7); Nucleated Red Blood Cells % 0.1 % (0-0); Platelets 387 thou/uL (152-406); RBC Red Blood Cell Count 4.47 M/uL (3.86-4.86)
[2024-06-22 19:48] LABS: Albumin 3.4 g/dL (3.4-5.0); Albumin/Globulin Ratio 0.8 (1.1-1.8); Anion Gap 7.8 mEq/L (5.0-15.0); Bilirubin Total 0.5 mg/dL (0.2-1.0); Globulin 4.1 g/dL (2.3-3.5); Potassium 3.8 mEq/L (3.5-5.1); Protein, Total 7.5 g/dL (6.4-8.2)
--- NOTE | 2024-06-22 21:29 | RAD REPORT ---
EXAM: Abdominal exam Limited ultrasound CLINICAL HISTORY: Abdominal pain COMPARISON: None FINDINGS: Echogenic structure right upper quadrant posterior shadowing. This probably represents stones within a collapsed gallbladder. Gallbladder wall is not thickened. Common bile duct not well seen but probably within normal limits IMPRESSION: Contracted gallbladder containing multiple stones.
[2024-06-22] MEDS ORDERED: KETOROLAC 30 MG/ML INJ ONE (21:30)
--- NOTE | 2024-06-22 21:37 | RAD REPORT ---
EXAMINATION: CT ABDOMEN AND PELVIS WITH AND WITHOUT CONTRAST CLINICAL INDICATION: Abdominal pain. Right flank pain TECHNIQUE: CT abdomen and pelvis was performed before and after the administration of IV contrast as per department protocol. 100 cc Isovue 300 administered intravenously. Axial, sagittal and coronal reconstructions were obtained. One or more of the following dose reduction techniques were used: Auto mated exposure control, adjustment of the mA and/or kV according to patient size, and/or iterative reconstruction. Unless otherwise specified, incidental findings do not require dedicated imaging foll ow-up. [id number]. COMPARISON: No prior exam. FINDINGS: The liver, spleen, pancreas and adrenals appear unremarkable A renal mass is not seen. No hydronephrosis. A genitourinary calculus not noted. The kidneys exhibit symmetric concentration of contrast. Multiple gallstones. Gallbladder wall does not appear thickened. No evidence of diverticulitis Normal appendix 2 cm left ovarian cyst without significant free fluid. No follow-up imaging recommended. IMPRESSION: Cholelithiasis without evidence of cholecystitis
--- NOTE | 2024-06-22 21:37 | RAD REPORT ---
Procedure: Chest Single View HISTORY: Flank pain. Vomiting. COMPARISON: none FINDINGS: The lungs appear clear of acute infiltrate. No significant pleural effusion noted. The heart is mildly enlarged. IMPRESSION: No acute abnormality is displayed.
--- NOTE | 2024-06-22 21:59 | EDPHYS ---
Physician Documentation [facility] Name: Sally Mclaughlin Age: 43 yrs Sex: Female : 1980 Arrival Date: 06/22/2024 Time: 17:11 Bed 4 Private MD: ED Physician Keven Mcneal HPI: 06/22 17:45 This 43 yrs old Female presents to ER via Ambulatory with complaints of Flank cp Pain. 17:45 Onset: The symptoms/episode began/occurred 5 day(s) ago. cp 17:45 The patient complains of pain in the right flank. Associated signs and symptoms: cp Pertinent positives: dysuria, nausea, vomiting. 17:45 Modifying factors: the symptoms are aggravated by movement, food/fluids. Severity of cp pain: in the emergency department the pain is unchanged despite home interventions. 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 - Infectious Disease History:: Denies. - Social history:: Smoking status: Patient denies any tobacco usage or history of. ROS: 17:50 Constitutional: Negative for body aches, chills, fever, poor PO intake, cp 17:50 Cardiovascular: Negative for chest pain, 17:50 Abdomen/GI: Positive for abdominal pain, nausea, vomiting, and diarrhea, Negative for constipation, 17:50 Back: Positive for flank pain, on the right, 17:50 Eyes: Negative for injury, pain, redness, and discharge, cp 17:50 Respiratory: Negative for cough, shortness of breath, wheezing, 17:50 : Negative for urinary symptoms, 17:50 Skin: Negative for rash, 17:50 All other systems are negative, Exam: 17:55 Constitutional: The patient appears in no acute distress, alert, awake, cp non-diaphoretic, non-toxic, well developed, well nourished, obese, 17:55 Head/Face: Normocephalic, atraumatic. cp 17:55 Eyes: Periorbital structures: appear normal, Conjunctiva: normal, no exudate, no cp injection, Sclera: no appreciated abnormality, Lids and lashes: appear normal, bilaterally, 17:55 ENT: External ear(s): are unremarkable, Nose: is normal, Mouth: Lips: moist, Oral mucosa: moist, Posterior pharynx: Airway: no evidence of obstruction, patent, 17:55 Chest/axilla: Inspection: normal, 17:55 Cardiovascular: Rate: tachycardic, Rhythm: regular, Edema: is not appreciated, JVD: is not appreciated, 17:55 Respiratory: the patient does not display signs of respiratory distress, Respirations: normal, no use of accessory muscles, no retractions, labored breathing, is not present, Breath sounds: are clear throughout, no decreased breath sounds, no stridor, no wheezing, 17:55 Abdomen/GI: Inspection: obese Bowel sounds: active, all quadrants, Palpation: soft, in all quadrants, moderate abdominal tenderness, in the epigastric area, posterior aspect of right lateral abdomen, anterior aspect of right lateral abdomen and right upper quadrant, rebound tenderness, is not appreciated, 17:55 Back: pain, that is moderate, of the right mid back, 17:55 Skin: no rash present. Vital Signs: 17:22 BP 189 / 99; Pulse 100; Resp 20; Temp 98.1; Pulse Ox 100% on R/A; hb 19:24 BP 181 / 98; Pulse 98; Resp 18; Pulse Ox 99% on R/A; kd3 21:34 BP 147 / 91; Pulse 86; Resp 19; Pulse Ox 100% on R/A; kd3 22:25 BP 144 / 92; Pulse 81; Resp 17; Temp 98.1; Pulse Ox 98% ; Pain 3/10; bm8 22:25 Pain Scale: Adult bm8 Epworth Coma Score: 22:25 Eye Response: spontaneous(4). Motor Response: obeys commands(6). Verbal Response: bm8 oriented(5). Total: 15. MDM: 18:00 Differential diagnosis: nephrolithiasis, pyelonephritis, UTI, pancreatitis, cp cholelithiasis, cholecystitis. 21:58 Medical Screening Exam initiated 21:58 Data reviewed: vital signs, nurses notes, lab test result(s), radiologic studies, CT cp scan, ultrasound, and as a result, I will discharge patient. 21:58 I considered the following discharge prescriptions or medication management in the emergency department Medications were administered in the Emergency Department. See MAR. Care significantly affected by the following chronic conditions: Diabetes, Hypertension, Obesity. Counseling: I had a detailed discussion with the patient and/or guardian regarding the historical points, exam findings, and any diagnostic results supporting the discharge/admit diagnosis, lab results, radiology results, the need for outpatient follow up, for definitive care, a general surgeon, to return to the emergency department if symptoms worsen or persist or if there are any questions or concerns that arise at home. Response to treatment: the patient's symptoms have markedly improved after treatment, and as a result, I will discharge patient. 06/22 17:35 Order name: UA Rfx Abdirashid Cult if indicated; Complete Time: 19:26 06/22 19:27 Interpretation: Normal except: [facility] Turbid. 06/22 17:35 Order name: Test, Urine; Complete Time: 19:26 06/22 19:27 Interpretation: Reviewed. 06/22 17:35 Order name: CBC with Diff; Complete Time: 20:01 06/22 20:01 Interpretation: Normal except: HGB 11.5; HCT 34.6; MCV 77.4; MCH 25.8; RDW 18.0. 06/22 17:35 Order name: CMP; Complete Time: 20:01 06/22 17:35 Order name: Lipase; Complete Time: 20:01 06/22 17:35 Order name: US Abdomen Limited: liver/gallbladder; Complete Time: 21:37 / 21:37 Interpretation: Report reviewed. 06/22 20:02 Order name: CT Abd/Pelvis- W/WO Contrast; Complete Time: 21:54 / 20:03 Order name: XRAY Chest (1 view); Complete Time: 21:54 06/22 17:35 Order name: IV Saline Lock; Complete Time: 19:08 06/22 17:35 Order name: Labs collected and sent; Complete Time: 19:08 06/22 17:35 Order name: NPO; Complete Time: 19:09 cp Administered Medications: 19:22 Drug: Ondansetron IVP 4 mg IVP once; over 2 minutes Route: IVP; Site: left antecubital; kd3 22:26 Follow up: Response: No adverse reaction bm8 19:23 Drug: Famotidine IVP 20 mg IVP once; dilute with 10 mL 0.9% NaCl; give over 2 minutes kd3 Route: IVP; Site: left antecubital; 22:26 Follow up: Response: No adverse reaction bm8 19:23 Drug: NS 0.9% IV 1000 ml IV at 1 bolus Per protocol; to be given as a bolus over 60 kd3 minutes Route: IV; Rate: 1 bolus; Site: left antecubital; 22:26 Follow up: Response: No adverse reaction; IV Status: Completed infusion bm8 21:32 Drug: Ketorolac IVP 15 mg IVP once Route: IVP; Site: left antecubital; kd3 22:26 Follow up: Response: No adverse reaction bm8 22:26 Drug: Dicyclomine IM 20 mg IM once Route: IM; Site: left deltoid; bm8 22:26 Follow up: Response: Medication Administered at Departure bm8 Disposition: 06/23 19:56 Co-signature as Attending Physician, Keven Mcneal MD I agree with the assessment sp4 and plan of care. I reviewed the patient's care provided by the Advanced Practice Provider and agree with the diagnosis and treatment plan. Disposition Summary: 06/22/24 21:58 Discharge Ordered Notes: Location: Home cp Problem: new cp Symptoms: have improved cp Condition: Stable cp Diagnosis - Other cholelithiasis without obstruction cp Followup: cp - With: Dileep Avalos MD - When: 2 - 3 days - Reason: Recheck today's complaints Discharge Instructions: - Discharge Summary Sheet cp - Cholelithiasis cp Forms: - Medication Reconciliation Form cp - Antibiotic Education cp - Prescription Opioid Use cp - Patient Portal Instructions cp - Leadership Thank You Letter cp Prescriptions: - Pepcid 20 mg Oral Tablet - take 1 tablet ORAL route every 12 hours for 10 days; 20 tablet; Refills: 0, cp Product Selection Permitted - dicyclomine 20 mg Oral tablet - take 1 tablet ORAL route 4 times per day; 30 tablet; Refills: 0, Product cp Selection Permitted - ondansetron 8 mg Oral Tablet,disintegrating - take 1 tablet ORAL route every 12 hours; 20 tablet; Refills: 0, Product cp Selection Permitted Signatures: Dispatcher [employer] EDMS Jasmeet Agrawal PA PA cp Jyoti Cheema, RN RN Joana Sanchez RN RN kd3 Keven Mcneal MD MD sp4 Nawaf Dunne, RN RN bm8 Corrections: (The following items were deleted from the chart) 06/22 17:24 17:23 PMHx: CHF (Schizophrenia); hb hb 17:36 17:36 UA Rfx Abdirashid Cult if indicated+U.LAB.BRZ ordered. EDMS EDMS 17:36 17:36 Test, Urine+UC.LAB.BRZ ordered. EDMS EDMS 17:36 17:36 CBC+H.LAB.BRZ ordered. EDMS EDMS 17:36 17:36 COMPREHENSIVE METABOLIC PANEL+C.LAB.BRZ ordered. EDMS EDMS 17:36 17:36 LIPASE+C.LAB.BRZ ordered. EDMS EDMS 19:05 19:00 The patient complains of pain in the right flank, cp cp 19:05 19:00 This 43 yrs old Female presents to ER via Ambulatory with complaints of cp Flank Pain. cp 19:05 19:00 Onset: The symptoms/episode began/occurred 5 day(s) ago, cp cp 19:05 19:00 Associated signs and symptoms: Pertinent positives: dysuria, nausea, vomiting, cp cp 06/23 01:48 01:47 Back: Positive for flank pain, on the right, cp cp 01:48 01:47 Abdomen/GI: Positive for abdominal pain, nausea, vomiting, and diarrhea, Negative cp for constipation, cp 01:48 01:47 Constitutional: Negative for body aches, chills, fever, poor PO intake, cp cp 01:48 01:47 Cardiovascular: Negative for chest pain, cp cp
--- NOTE | 2024-06-22 21:59 | ER ---
Nurse's Notes [facility] Name: Sally Mclaughlin Age: 43 yrs Sex: Female : 1980 Arrival Date: 06/22/2024 Time: 17:11 Bed 4 Private MD: Diagnosis: Other cholelithiasis without obstruction Presentation: 06/22 17:22 Chief complaint: Right flank pain x 5 days, dysuria and N/V/d x 3 days. Coronavirus hb screen: At this time, the client does not indicate any symptoms associated with coronavirus-19. Ebola Screen: No symptoms or risks identified at this time. Initial Sepsis Screen: Does the patient meet any 2 criteria? No. Patient's initial sepsis screen is negative. Does the patient have a suspected source of infection? No. Patient's initial sepsis screen is negative. Risk Assessment: Do you want to hurt yourself or someone else? Patient reports no desire to harm self or others. Onset of symptoms was June 18, 2024. 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 - Infectious Disease History:: Denies. - Social history:: Smoking status: Patient denies any tobacco usage or history of. Screenin:25 [facility] ED Fall Risk Assessment (Adult) History of falling in the last 3 months, kd3 including since admission No falls in past 3 months (0 pts) Confusion or Disorientation No (0 pts) Intoxicated or Sedated No (0 pts) Impaired Gait No (0 pts) Mobility Assist Device Used No (0 pt) Altered Elimination No (0 pt) Score/Fall Risk Level 0 - 2 = Low Risk Oriented to surroundings. Abuse screen: Denies threats or abuse. Denies injuries from another. Nutritional screening: No deficits noted. Tuberculosis screening: No symptoms or risk factors identified. Assessment: 19:23 General: Appears in no apparent distress. Behavior is calm, cooperative. General: Pt kd3 seen resting in the stretcher, A\T\O x 4, respirations are even and unlabored, skin is warm and dry and even in color. PT is able to speak in full and complete sentences without pausing or experiencing SOB. Pt IV access obtained and blood samples sent to the lab. PT denies need for pain meds at this time. Pt VSS. . Pain: Denies pain. GI: Bowel sounds present X 4 quads. Abd is soft X 4 quads. 22:25 Reassessment: Patient appears in no apparent distress at this time. Patient and/or bm8 family updated on plan of care and expected duration. Pain level reassessed. Patient is alert, oriented x 3, equal unlabored respirations, skin warm/dry/pink. Patient denies pain at this time. Patient states feeling better. Patient states symptoms have improved. Vital Signs: 17:22 BP 189 / 99; Pulse 100; Resp 20; Temp 98.1; Pulse Ox 100% on R/A; hb 19:24 BP 181 / 98; Pulse 98; Resp 18; Pulse Ox 99% on R/A; kd3 21:34 BP 147 / 91; Pulse 86; Resp 19; Pulse Ox 100% on R/A; kd3 22:25 BP 144 / 92; Pulse 81; Resp 17; Temp 98.1; Pulse Ox 98% ; Pain 3/10; bm8 22:25 Pain Scale: Adult bm8 Allen Coma Score: 22:25 Eye Response: spontaneous(4). Motor Response: obeys commands(6). Verbal Response: bm8 oriented(5). Total: 15. ED Course: 17:17 Patient arrived in ED. gl 17:22 Jasmeet Agrawal PA is PHCP. cp 17:22 Jazmyne Harmon MD is Attending Physician. cp 17:23 Triage completed. hb 17:23 Arm band placed on. hb 17:59 Test, Urine Sent. ll1 17:59 UA Rfx Abdirashid Cult if indicated Sent. ll1 18:37 US Abdomen Limited: liver/gallbladder In Process Unspecified. EDMS 19:04 Joana Sanchez, GLENNA is Primary Nurse. kd3 19:08 Inserted saline lock: 20 gauge in left antecubital area, using aseptic technique. Blood kd3 collected. Flushed with 10 mL NS. 19:22 Lipase Sent. kd3 19:22 CMP Sent. kd3 19:22 CBC with Diff Sent. kd3 19:25 Patient has correct armband on for positive identification. Provided Education on: kd3 blood collection . 20:51 XRAY Chest (1 view) In Process Unspecified. EDMS 21:17 CT Abd/Pelvis- W/WO Contrast In Process Unspecified. EDMS 21:57 Keven Mcneal MD is Attending Physician. cp 21:58 Dileep Avalos MD is Referral Physician. cp 22:25 No provider procedures requiring assistance completed. IV discontinued, intact, bm8 bleeding controlled, No redness/swelling at site. Pressure dressing applied. Administered Medications: 19:22 Drug: Ondansetron IVP 4 mg IVP once; over 2 minutes Route: IVP; Site: left antecubital; kd3 22:26 Follow up: Response: No adverse reaction bm8 19:23 Drug: Famotidine IVP 20 mg IVP once; dilute with 10 mL 0.9% NaCl; give over 2 minutes kd3 Route: IVP; Site: left antecubital; 22:26 Follow up: Response: No adverse reaction bm8 19:23 Drug: NS 0.9% IV 1000 ml IV at 1 bolus Per protocol; to be given as a bolus over 60 kd3 minutes Route: IV; Rate: 1 bolus; Site: left antecubital; 22:26 Follow up: Response: No adverse reaction; IV Status: Completed infusion bm8 21:32 Drug: Ketorolac IVP 15 mg IVP once Route: IVP; Site: left antecubital; kd3 22:26 Follow up: Response: No adverse reaction bm8 22:26 Drug: Dicyclomine IM 20 mg IM once Route: IM; Site: left deltoid; bm8 22:26 Follow up: Response: Medication Administered at Departure bm8 Medication: 19:25 VIS not applicable for this client. kd3 Outcome: 21:58 Discharge ordered by . cp 22:25 Discharged to home ambulatory, bm8 22:25 Condition: stable 22:25 Discharge instructions given to patient, Instructed on discharge instructions, follow up and referral plans. Demonstrated understanding of instructions, follow-up care, medications, Prescriptions given X 3, 22:27 Patient left the ED. bm8 Signatures: Dispatcher [employer] EDMS Jasmeet Agrawal PA PA cp Baxter, Heather RN RN hb Preston Everett RN RN ll1 Joana Sanchez RN RN kd3 Nawaf Dunne RN RN bm8 Pamella Rya, Reg Reg gl Corrections: (The following items were deleted from the chart) 17:24 17:23 PMHx: CHF (Schizophrenia); hb hb
[2024-06-22] MEDS ORDERED: DICYCLOMINE HCL 20 MG/2 ML AMP IM ONE (22:18)
[2024-06-22 22:33] VITALS: TEMP 98.1
[2024-06-22 22:37] VITALS: BP 144/92; O2SAT 98
== END 2024-06-22 22:27 | disposition home or self-care (01) ==
LOC: ER 17:11
DX: K80.80 Other cholelithiasis without obstruction (principal)
CPT/HCPCS: 96361; 85025; 81001; 36415; 81025; 83690; 80053; 74178; 71045; 76705; 96375; 96372; 96374; 99284; Q9967; J0500; J2405; J7030